=== PATIENT | female | born 1975 | race Two or more races ===

== ENCOUNTER 2018-03-27 07:28 | Inpatient (IN) | payer OTHER ==
[~2018-03-27] VITALS: Ht 175.3 cm; Wt 61.2 kg
[2018-03-27 08:05] VITALS: BP 111/79
--- NOTE | 2018-03-27 08:18 | NUR ---
ED Nurse Note: Pt from home, visiting from [place] returning Thursday03/30/18, ambulatory, A&Ox4. Pt c/o abdominal pain 5/10 and vaginal bleeding for two days after taking Tamiflu for 3 days. Pt's VS taken, blood drawn and needs met. Awaiting further instructions/orders for continuity of care.
--- NOTE | 2018-03-27 08:21 | Emergency Room Report ---
History of Present Illness General Chief Complaint: Abdominal Pain Source: Patient Present Illness HPI Patient is a 47-year-old female presented after increased lower abdominal pain. Patient had gradual onset of symptoms. She reports having increased vaginal bleeding for the past 2 days. Patient had normal menses approximately 2 weeks ago. She denies irregular menses in the past. Patient had been having increased generalized body aches as well as abdominal discomfort associated with some diarrhea. Patient had no prior history of fibroids. She reports having some prior lesion which was ill-defined. Patient denies any anticoagulant use. She reports taking Tamiflu as well as ibuprofen for the past few days. She reports of increased abdominal discomfort. She denies any hematemesis.Patient had recent travel to [facility] proximally 2 months ago and had recently been treated for amebiasis with 5 days of metronidazole. Patient also had recently traveled to [place] and had just come to the . She reports having multiple insect bites that time.Patient is from [place] and currently lives in [place].Patient reports having multiple episodes of diarrhea. She reports having had 3 miscarriages in the past and denies being . Allergies: Coded Allergies: No Known Allergies (Unverified , 03/27/18) Patient History Past Medical History: see triage record Last Menstrual Period: 03/13/2018 Now: No : 4 Para: 0 Reviewed Nursing Documentation: PMH: Agreed; PSxH: Agreed Nursing Documentation-PMH Hx Cardiac Problems: No - lymphedema Review of Systems All Other Systems: negative except mentioned in HPI Physical Exam Vital Signs Date Time Temp Pulse Resp B/P (MAP) Pulse Ox O2 Delivery O2 Flow Rate FiO2 03/27/18 07:38 98.1 92 18 100/74 97 Room Air Sp02 EP Interpretation: reviewed, normal General Appearance: normal inspection, well appearing, no apparent distress, alert, GCS 15 Head: atraumatic ENT: normal ENT inspection, hearing grossly normal, normal voice Neck: normal inspection, full range of motion, supple, no bony tend Respiratory: normal inspection, lungs clear, normal breath sounds, no respiratory distress, no retraction, no wheezing Cardiovascular #1: regular rate, rhythm, no edema Gastrointestinal: normal inspection, normal bowel sounds, non tender, soft, no guarding, no hernia Genitourinary: no CVA tenderness, other - small amount of dark vaginal bleeding , no mass palpable,no adnexal tenderness Musculoskeletal: normal inspection, back normal, normal range of motion Neurologic: normal inspection, alert, oriented x3, responsive, online user experience strategist III-XII nml as tested, motor strength/tone normal, DTRs symmetric, speech normal Psychiatric: normal inspection, judgement/insight normal, mood/affect normal Skin: normal inspection, normal color, no rash Medical Decision Making Diagnostic Impression: Primary Impression: Thrombocytopenia Additional Impressions: Leukopenia Acute febrile illness ER Course . Patient presented for abdominal pain. Differential diagnoses included ischemic bowel, appendicitis, perforated viscus, abdominal aortic aneurysm, inferior myocardial infarction, viral gastroenteritis . Because of complexity of patient's case laboratory testing and imaging studies were ordered. Pelvic ultrasound read by radiology showed minimal free fluid. There was follicle seen in both ovaries.. Patient was noted to have some evidence of leukopenia as well as thrombocytopenia on blood testing. Patient reports having recent fever for the past 5 days. Patient's symptoms are somewhat consistent with influenza however given the patient's leukopenia I think ITP may be another diagnosis. Patient additionally has some family history of rheumatoid disease and states her mom has rheumatoid arthritis. Patient reportedly had previously been treated for amebiasis approximately 2 months ago.She states that she was in [place] for the past [address] Nitin England was contacted for inpatient management. Labs Test 03/27/18 07:50 03/27/18 08:10 Urine Color Pale yellow Urine Appearance Clear Urine pH 5 (4.5-8.0) Urine Specific [place] 1.010 (1.005-1.035) Urine Protein 2+ (NEGATIVE) Urine Glucose (UA) Negative (NEGATIVE) Urine Ketones Negative (NEGATIVE) Urine Blood 5+ (NEGATIVE) Urine Nitrite Negative (NEGATIVE) Urine Bilirubin Negative (NEGATIVE) Urine Urobilinogen Normal MG/DL (0.0-1.0) Urine Leukocyte Esterase Negative (NEGATIVE) Urine RBC 2-4 /HPF (0 - 2) Urine WBC 0 /HPF (0 - 2) Urine Squamous Epithelial Cells Occasional /LPF Urine Bacteria Moderate /HPF (NONE) Urine HCG, Qualitative Negative (NEGATIVE) White Blood Count 1.5 K/UL (4.8-10.8) Red Blood Count 4.37 M/UL (4.20-5.40) Hemoglobin 13.9 G/DL (12.0-16.0) Hematocrit 40.9 % (37.0-47.0) Mean Corpuscular Volume 94 FL (80-99) Mean Corpuscular Hemoglobin 31.9 PG (27.0-31.0) Mean Corpuscular Hemoglobin Concent 34.1 G/DL (32.0-36.0) Red Cell Distribution Width 11.3 % (11.6-14.8) Platelet Count 87 K/UL (150-450) Mean Platelet Volume 6.5 FL (6.5-10.1) Neutrophils (%) (Auto) % (45.0-75.0) Lymphocytes (%) (Auto) % (20.0-45.0) Monocytes (%) (Auto) % (1.0-10.0) Eosinophils (%) (Auto) % (0.0-3.0) Basophils (%) (Auto) % (0.0-2.0) Prothrombin Time 10.0 SEC (9.30-11.50) Prothromb Time International Ratio 0.9 (0.9-1.1) Activated Partial Thromboplast Time 31 SEC (23-33) Sodium Level 136 MMOL/L (136-145) Potassium Level 4.3 MMOL/L (3.5-5.1) Chloride Level 100 MMOL/L (98-107) Carbon Dioxide Level 29 MMOL/L (21-32) Anion Gap 7 mmol/L (5-15) Blood Urea Nitrogen 6 mg/dL (7-18) Creatinine 1.0 MG/DL (0.55-1.30) Estimat Glomerular Filtration Rate 59.7 mL/min (>60) Glucose Level 103 MG/DL (74-106) Calcium Level 9.2 MG/DL (8.5-10.1) Total Bilirubin 0.3 MG/DL (0.2-1.0) Aspartate Amino Transf (AST/SGOT) 44 U/L (15-37) Alanine Aminotransferase (ALT/SGPT) 38 U/L (12-78) Alkaline Phosphatase 57 U/L (46-116) Total Protein 7.2 G/DL (6.4-8.2) Albumin 3.8 G/DL (3.4-5.0) Globulin 3.4 g/dL Albumin/Globulin Ratio 1.1 (1.0-2.7) Last Vital Signs Date Time Temp Pulse Resp B/P (MAP) Pulse Ox O2 Delivery O2 Flow Rate FiO2 03/27/18 07:38 98.1 92 18 100/74 97 Room Air Status: unchanged Disposition: ADMITTED INPATIENT Condition: Stable Referrals: NOT CHOSEN IPA/,REFERRING (PCP) Narayan Almanza MD Mar 27, 2018 08:21
[2018-03-27 08:47] LABS: HEMATOCRIT 40.9 % (37.0-47.0); HEMOGLOBIN 13.9 G/DL (12.0-16.0); MEAN CORPUSCULAR VOLUME 94 FL (80-99); PLATELET COUNT 87 K/UL (150-450); RED BLOOD COUNT 4.37 M/UL (4.20-5.40); RED CELL DISTRIBUTION WIDTH 11.3 % (11.6-14.8)
[2018-03-27 08:54] LABS: WHITE BLOOD COUNT 1.5 K/UL (4.8-10.8)
[2018-03-27 08:56] LABS: ANION GAP 7 mmol/L (5-15); BLOOD UREA NITROGEN 6 mg/dL (7-18); CALCIUM 9.2 MG/DL (8.5-10.1); CARBON DIOXIDE 29 MMOL/L (21-32); CHLORIDE 100 MMOL/L (98-107); POTASSIUM 4.3 MMOL/L (3.5-5.1); SODIUM 136 MMOL/L (136-145)
[2018-03-27 08:58] LABS: INR 0.9 (0.9-1.1)
[2018-03-27 09:01] LABS: ALANINE AMINOTRANSFERASE 38 U/L (12-78); ALBUMIN 3.8 G/DL (3.4-5.0); ALBUMIN/GLOBULIN RATIO 1.1 (1.0-2.7); ALKALINE PHOSPHATASE 57 U/L (46-116); ASPARTATE AMINO TRANSFERASE 44 U/L (15-37); BILIRUBIN,TOTAL 0.3 MG/DL (0.2-1.0)
[2018-03-27 09:03] LABS: APPEARANCE,URINE CLEAR; BILIRUBIN, URINE NEGATIVE (NEGATIVE); COLOR,URINE PALE YELLOW; GLUCOSE, URINE (UA) NEGATIVE (NEGATIVE); KETONES,URINE NEGATIVE (NEGATIVE); LEUKOCYTE ESTERASE ,URINE NEGATIVE (NEGATIVE); NITRITE,URINE NEGATIVE (NEGATIVE); PH,URINE 5 (4.5-8.0); PROTEIN,URINE 2+ (NEGATIVE); UROBILINOGEN,URINE NORMAL MG/DL (0.0-1.0)
--- NOTE | 2018-03-27 09:10 | NUR ---
ED Nurse Note: Pt. went down to US
--- NOTE | 2018-03-27 09:30 | NUR ---
ED Nurse Note: Pt came back form [facility]
--- NOTE | 2018-03-27 10:19 | Diagnostic Imaging Report ---
INDICATION: Pain TECHNIQUE: Real-time sonographic evaluation of the pelvis is performed in transverse and longitudinal projections. Both trans-abdominal and endovaginal techniques are utilized. COMPARISON: None FINDINGS: A negative test is reported. The uterus is normal in size, it measures 8.2 x 5.2 x 4 centimeters. The endometrium is normal in thickness measuring 5.8 mm. The right ovary measures 3.5 x 3.6 x 1.7 cm and the left ovary measure 3. 7 x 3.4 x 2 cm. Follicles are seen in bilateral ovaries measuring 1.8 cm maximally on the left. Small amount of free fluid. IMPRESSION: Small amount of free pelvic fluid with bilateral ovarian follicles, measuring 1.8 cm maximally on the left. Otherwise normal pelvic ultrasound.
--- NOTE | 2018-03-27 11:00 | NUR ---
ED Nurse Note: Pelvic exam done by MD with 1 female RN assistance. Pt complaint with procedure well. Denied pain or discomfort. at bedside.
[2018-03-27] MEDS ORDERED: TBO-Filgrastim 300 mcg/0.5ml SQ SCH (11:39)
[2018-03-27] MEDS ORDERED: LORazepam 1mg tab ORAL PRN (11:45)
[2018-03-27] MEDS ORDERED: Nitroglycerin Subl 0.4mg tab SL PRN (11:45)
[2018-03-27] MEDS ORDERED: Mylanta II UD 30ml ORAL PRN (11:45)
[2018-03-27] MEDS ORDERED: HYDROmorphone 1mg/NS 50ml IVPB 50 ML IVPB PRN (11:45)
[2018-03-27] MEDS ORDERED: Zolpidem 5mg tab ORAL PRN (11:45)
[2018-03-27 12:10] VITALS: BP 94/60
--- NOTE | 2018-03-27 12:46 | Consultation ---
History of Present Illness General Date patient seen: Mar 27, 2018 Chief Complaint: Abdominal Pain Present Illness HPI 42 y/o F with hx of miscarriage x3 presents to ED on 03/27 with lower abd pain and vaginal bleeding for 2 days and 5 days of fever. Per patient, she had normal menses ~ 2 weeks ago. Also endorses generalized body aches, diarrhea. Patient returned from [place] 1 week ago after being there for 1 month for vacaction. Over there she got multiple mosquito bites; [place]. [place] SHe started having feverse 3 days after returnign from [facility]; fever up to 100-101, persistent. Also frontal headaches, nausea Denies hematemesis, melena, vomiting, cough, sore throat, rash AMS. Of note,jimi fuentes had a recent travel to [facility] for 1 month Nov-Dec 2017 and had recently been treated for amebiasis with 5 days of Flagyl and diarrhea resolved. 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 Patient is from [place] and currently lives in [place]. Allergies: Coded Allergies: No Known Allergies (Unverified , 03/27/18) Patient History Healthcare decision maker N Resuscitation status Advanced Directive on File Physical Exam Physical Exam Narrative General Appearance: normal inspection, well appearing, no apparent distress, alert, HEENT: atraumatic, normal ENT inspection Neck: normal inspection, full range of motion, supple, no bony tend Respiratory: normal inspection, lungs clear, normal breath sounds, no respiratory distress, no retraction, no wheezing Cardiovascular : regular rate, rhythm, no edema Gastrointestinal: normal inspection, normal bowel sounds, non tender, soft, no guarding, no hernia Genitourinary: no CVA tenderness Musculoskeletal: normal inspection, back normal, normal range of motion Skin: normal inspection, normal color, no rash, capillary refil <2s Last 24 Hour Vital Signs Date Time Temp Pulse Resp B/P (MAP) Pulse Ox O2 Delivery O2 Flow Rate FiO2 03/27/18 12:10 100.8 79 17 94/60 98 Room Air 03/27/18 08:30 75 14 Room Air 03/27/18 08:05 98.7 75 14 111/79 100 Room Air 03/27/18 07:38 98.1 92 18 100/74 97 Room Air Laboratory Tests Test 03/27/18 07:50 03/27/18 08:10 Urine Color Pale yellow Urine Appearance Clear Urine pH 5 (4.5-8.0) Urine Specific [place] 1.010 (1.005-1.035) Urine Protein 2+ (NEGATIVE) H Urine Glucose (UA) Negative (NEGATIVE) Urine Ketones Negative (NEGATIVE) Urine Blood 5+ (NEGATIVE) H Urine Nitrite Negative (NEGATIVE) Urine Bilirubin Negative (NEGATIVE) Urine Urobilinogen Normal MG/DL (0.0-1.0) Urine Leukocyte Esterase Negative (NEGATIVE) Urine RBC 2-4 /HPF (0 - 2) H Urine WBC 0 /HPF (0 - 2) Urine Squamous Epithelial Cells Occasional /LPF Urine Bacteria Moderate /HPF (NONE) H Urine HCG, Qualitative Negative (NEGATIVE) White Blood Count 1.5 K/UL (4.8-10.8) *L Red Blood Count 4.37 M/UL (4.20-5.40) Hemoglobin 13.9 G/DL (12.0-16.0) Hematocrit 40.9 % (37.0-47.0) Mean Corpuscular Volume 94 FL (80-99) Mean Corpuscular Hemoglobin 31.9 PG (27.0-31.0) H Mean Corpuscular Hemoglobin Concent 34.1 G/DL (32.0-36.0) Red Cell Distribution Width 11.3 % (11.6-14.8) L Platelet Count 87 K/UL (150-450) L Mean Platelet Volume 6.5 FL (6.5-10.1) Neutrophils (%) (Auto) % (45.0-75.0) Lymphocytes (%) (Auto) % (20.0-45.0) Monocytes (%) (Auto) % (1.0-10.0) Eosinophils (%) (Auto) % (0.0-3.0) Basophils (%) (Auto) % (0.0-2.0) Differential Total Cells Counted 100 Neutrophils % (Manual) 47 % (45-75) Lymphocytes % (Manual) 39 % (20-45) Monocytes % (Manual) 0 % (1-10) L Eosinophils % (Manual) 0 % (0-3) Basophils % (Manual) 1 % (0-2) Band Neutrophils 13 % (0-8) H Platelet Estimate Decreased L Platelet Morphology Normal Red Blood Cell Morphology Normal Prothrombin Time 10.0 SEC (9.30-11.50) Prothromb Time International Ratio 0.9 (0.9-1.1) Activated Partial Thromboplast Time 31 SEC (23-33) Sodium Level 136 MMOL/L (136-145) Potassium Level 4.3 MMOL/L (3.5-5.1) Chloride Level 100 MMOL/L (98-107) Carbon Dioxide Level 29 MMOL/L (21-32) Anion Gap 7 mmol/L (5-15) Blood Urea Nitrogen 6 mg/dL (7-18) L Creatinine 1.0 MG/DL (0.55-1.30) Estimat Glomerular Filtration Rate 59.7 mL/min (>60) Glucose Level 103 MG/DL (74-106) Calcium Level 9.2 MG/DL (8.5-10.1) Total Bilirubin 0.3 MG/DL (0.2-1.0) Aspartate Amino Transf (AST/SGOT) 44 U/L (15-37) H Alanine Aminotransferase (ALT/SGPT) 38 U/L (12-78) Alkaline Phosphatase 57 U/L (46-116) Total Protein 7.2 G/DL (6.4-8.2) Albumin 3.8 G/DL (3.4-5.0) Globulin 3.4 g/dL Albumin/Globulin Ratio 1.1 (1.0-2.7) Microbiology Date/Time Source Procedure Growth Status 03/27/18 00:00 Nasal Nares Influenza Types A,B Antigen (COLLEEN) - Final Complete Height (Feet): 5 Height (Inches): 9.00 Weight (Pounds): 135 Medications Current Medications Medications (Trade) Dose Ordered Sig/Ronda Route PRN Reason Start Time Stop Time Status Last Admin Dose Admin Acetaminophen (Tylenol) 650 mg Q4H PRN ORAL fever 03/27/18 11:45 04/26/18 11:44 Al Hydroxide/Mg Hydroxide (Mylanta II) 30 ml Q6H PRN ORAL dyspepsia 03/27/18 11:45 04/26/18 11:44 Bisacodyl (Dulcolax) 10 mg HSPRN PRN RECTAL Constipation 03/27/18 11:45 04/26/18 11:44 Dextrose (Dextrose 50%) 25 ml Q30M PRN IV Hypoglycemia 03/27/18 11:45 04/26/18 11:44 Dextrose (Dextrose 50%) 50 ml Q30M PRN IV Hypoglycemia 03/27/18 11:45 04/26/18 11:44 Diphenhydramine HCl (Benadryl) 25 mg Q6H PRN ORAL Itching/Pruritis 03/27/18 11:45 04/26/18 11:44 Famotidine (Pepcid) 40 mg DAILY ORAL 03/28/18 09:00 04/27/18 08:59 Hydromorphone HCl 50 ml @ 200 mls/hr EVERY 6 HOURS PRN IVPB Moderate Pain (Pain Scale 4-6) 03/27/18 11:45 04/26/18 11:44 UNV Lorazepam (Ativan) 1 mg Q4H PRN ORAL For Anxiety 03/27/18 11:45 04/03/18 11:44 Nitroglycerin (Ntg) 0.4 mg Q5M X 3 DOSES PRN SL Prn Chest Pain 03/27/18 11:45 04/26/18 11:44 Ondansetron HCl (Zofran) 4 mg Q6H PRN IVP Nausea & Vomiting 03/27/18 11:45 04/26/18 11:44 Sodium 1,000 ml @ 75 mls/hr [id number] IV 03/27/18 12:38 04/26/18 12:37 UNV Tbo-Filgrastim (Granix) 300 mcg ONCE SQ 03/27/18 11:39 03/27/18 15:00 Zolpidem Tartrate (Ambien) 5 mg HSPRN PRN ORAL Insomnia 03/27/18 11:45 04/03/18 11:44 Assessment/Plan Assessment/Plan Abx: None Assessment: Viral syndrome- high suspicion for Dengue fever given recent travel to [place], multiple mosquitoes bites, leukopenia/thrombocytopenia, bleeding, fever- watch out for Dengue hemorrhagic fever and/or shock Vaginal Bleeding -Pelvic/transvaginal US: Small amount of free pelvic fluid with bilateral ovarian follicles, measuring 1.8 cm maximally on the left. Otherwise normal pelvic ultrasound. 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 Will continue to follow along with you. Discussed with Shiela Costa M.D. Mar 27, 2018 12:46
--- NOTE | 2018-03-27 12:50 | NUR ---
ED Nurse Note: Report given to ANNA Jenkins in Med surge including admitting MD walter, the most recent VS and lab resulrt. Addendum: 03/27/18 at 1251 by [email or web address] ED Nurse Note: Report given to ANNA Jenkins in Med surge including admitting MD walter, the most recent VS and lab results. Pt had mild fever earlier and 2 tabs Tylenol 325mg were given and last Temp was 99.7. Pt left department by floor technician in stable condition. at bedside and he signed on belonging list and he will take everything home besides clothing and nose ring which is attached to pt.
--- NOTE | 2018-03-27 13:33 | Diagnostic Imaging Report ---
INDICATION: Infected COMPARISON: None FINDINGS: Single frontal view demonstrates a normal cardiomediastinal silhouette. Opacity in the right lower lung zone with small pleural effusion, correlation can be obtained with CT. The visualized osseous structures are within normal limits. IMPRESSION: Opacity in the right lower lung zone with small pleural effusion, correlation can be obtained with CT.
[2018-03-27] MEDS: 1/2NS w/KCl 20mEq 1000ml 1,000 ML IV SCH (13:52)
[2018-03-27 16:00] VITALS: BP 135/82
[2018-03-27] MEDS ORDERED: HYDROmorphone 1mg/ml Carpuject IVP PRN (16:15)
[2018-03-27 20:00] VITALS: BP 88/49
--- NOTE | 2018-03-27 20:31 | NUR ---
HAND-OFF: Report given to ANNA Jarvis, pt is stable condition.
--- NOTE | 2018-03-27 20:32 | NUR ---
NURSE NOTES: patient received. patient in no acute distress at this time. patient complains of no pain at this time. patient awake alert and oriented x4. patient IV patent and asymptomatic. bed in lowest position and locked. call light within reach. will continue to monitor.
[2018-03-28 04:00] VITALS: BP 93/54
[2018-03-28] MEDS: 1/2NS w/KCl 20mEq 1000ml 1,000 ML IV SCH ×2 (04:05→15:48)
--- NOTE | 2018-03-28 07:15 | NUR ---
NURSE NOTES: Report received from ANNA Jarvis. Pt in bed, asleep, respiration regular, bed in lowest position, call light within reach.
[2018-03-28 07:32] LABS: HEMATOCRIT 36.3 % (37.0-47.0); HEMOGLOBIN 12.7 G/DL (12.0-16.0); MEAN CORPUSCULAR VOLUME 92 FL (80-99); PLATELET COUNT 70 K/UL (150-450); RED BLOOD COUNT 3.95 M/UL (4.20-5.40); RED CELL DISTRIBUTION WIDTH 11.4 % (11.6-14.8); WHITE BLOOD COUNT 8.9 K/UL (4.8-10.8)
--- NOTE | 2018-03-28 07:39 | NUR ---
HAND-OFF: Report given to ANNA hinds.
[2018-03-28 08:00] VITALS: BP 109/66
[2018-03-28 08:03] LABS: ALANINE AMINOTRANSFERASE 60 U/L (12-78); ALBUMIN 3.4 G/DL (3.4-5.0); ALKALINE PHOSPHATASE 52 U/L (46-116); ASPARTATE AMINO TRANSFERASE 67 U/L (15-37); BILIRUBIN,DIRECT 0.1 MG/DL (0.0-0.3); BILIRUBIN,TOTAL 0.3 MG/DL (0.2-1.0)
[2018-03-28 08:11] LABS: ANION GAP 7 mmol/L (5-15); BLOOD UREA NITROGEN 9 mg/dL (7-18); CALCIUM 8.6 MG/DL (8.5-10.1); CARBON DIOXIDE 26 MMOL/L (21-32); CHLORIDE 104 MMOL/L (98-107); CREATININE 0.9 MG/DL (0.55-1.30); POTASSIUM 4.2 MMOL/L (3.5-5.1); SODIUM 137 MMOL/L (136-145)
[2018-03-28 12:00] VITALS: BP 98/61
--- NOTE | 2018-03-28 15:33 | NUR ---
NURSE NOTES: pt asking for flu shot, notified Dr. England so we can order
--- NOTE | 2018-03-28 15:33 | Consultation ---
History of Present Illness General Date patient seen: Mar 28, 2018 Chief Complaint: Abdominal Pain Present Illness Allergies: Coded Allergies: No Known Allergies (Unverified , 03/27/18) Patient History Healthcare decision maker N Resuscitation status Full Code Advanced Directive on File Physical Exam Last 24 Hour Vital Signs Date Time Temp Pulse Resp B/P (MAP) Pulse Ox O2 Delivery O2 Flow Rate FiO2 03/28/18 12:00 98.3 70 19 98/61 (73) 99 03/28/18 09:00 Room Air 03/28/18 08:00 98.8 68 19 109/66 (80) 98 03/28/18 06:09 99.5 03/28/18 04:00 100.4 79 18 93/54 (67) 96 03/27/18 21:00 Room Air 03/27/18 20:00 100.9 75 17 88/49 (62) 03/27/18 16:00 100.1 70 135/82 (99) Intake and Output 03/27/18 03/28/18 19:00 07:00 Intake Total 1120 ml 120 ml Balance 1120 ml 120 ml Intake Oral 120 ml 120 ml IV Total 1000 ml # Voids 2 1 Laboratory Tests Test 03/27/18 18:30 03/28/18 06:00 Dengue Fever IgG Antibody Pending Dengue Fever IgM Antibody Pending White Blood Count 8.9 K/UL (4.8-10.8) # Red Blood Count 3.95 M/UL (4.20-5.40) L Hemoglobin 12.7 G/DL (12.0-16.0) Hematocrit 36.3 % (37.0-47.0) L Mean Corpuscular Volume 92 FL (80-99) Mean Corpuscular Hemoglobin 32.2 PG (27.0-31.0) H Mean Corpuscular Hemoglobin Concent 35.1 G/DL (32.0-36.0) Red Cell Distribution Width 11.4 % (11.6-14.8) L Platelet Count 70 K/UL (150-450) L Mean Platelet Volume 9.6 FL (6.5-10.1) Neutrophils (%) (Auto) % (45.0-75.0) Lymphocytes (%) (Auto) % (20.0-45.0) Monocytes (%) (Auto) % (1.0-10.0) Eosinophils (%) (Auto) % (0.0-3.0) Basophils (%) (Auto) % (0.0-2.0) Differential Total Cells Counted 100 Neutrophils % (Manual) 68 % (45-75) Lymphocytes % (Manual) 15 % (20-45) L Monocytes % (Manual) 8 % (1-10) Eosinophils % (Manual) 0 % (0-3) Basophils % (Manual) 0 % (0-2) Band Neutrophils 9 % (0-8) H Platelet Estimate Decreased L Platelet Morphology Normal Prothrombin Time 10.2 SEC (9.30-11.50) Prothromb Time International Ratio 1.0 (0.9-1.1) Activated Partial Thromboplast Time 30 SEC (23-33) Sodium Level 137 MMOL/L (136-145) Potassium Level 4.2 MMOL/L (3.5-5.1) Chloride Level 104 MMOL/L (98-107) Carbon Dioxide Level 26 MMOL/L (21-32) Anion Gap 7 mmol/L (5-15) Blood Urea Nitrogen 9 mg/dL (7-18) Creatinine 0.9 MG/DL (0.55-1.30) Estimat Glomerular Filtration Rate > 60 mL/min (>60) Glucose Level 92 MG/DL (74-106) Calcium Level 8.6 MG/DL (8.5-10.1) Total Bilirubin 0.3 MG/DL (0.2-1.0) Direct Bilirubin 0.1 MG/DL (0.0-0.3) Aspartate Amino Transf (AST/SGOT) 67 U/L (15-37) H Alanine Aminotransferase (ALT/SGPT) 60 U/L (12-78) Alkaline Phosphatase 52 U/L (46-116) Total Protein 5.9 G/DL (6.4-8.2) L Albumin 3.4 G/DL (3.4-5.0) HIV-1 RNA (PCR) log10 Value Pending HIV-1 RNA Ultraquantitative (PCR) Pending Height (Feet): 5 Height (Inches): 9.00 Weight (Pounds): 135 Medications Current Medications Medications (Trade) Dose Ordered Sig/Ronda Route PRN Reason Start Time Stop Time Status Last Admin Dose Admin Acetaminophen (Tylenol) 650 mg Q4H PRN ORAL fever 03/27/18 11:45 04/26/18 11:44 03/28/18 05:39 Al Hydroxide/Mg Hydroxide (Mylanta II) 30 ml Q6H PRN ORAL dyspepsia 03/27/18 11:45 04/26/18 11:44 Bisacodyl (Dulcolax) 10 mg HSPRN PRN RECTAL Constipation 03/27/18 11:45 04/26/18 11:44 Dextrose (Dextrose 50%) 25 ml Q30M PRN IV Hypoglycemia 03/27/18 11:45 04/26/18 11:44 Dextrose (Dextrose 50%) 50 ml Q30M PRN IV Hypoglycemia 03/27/18 11:45 04/26/18 11:44 Diphenhydramine HCl (Benadryl) 25 mg Q6H PRN ORAL Itching/Pruritis 03/27/18 11:45 04/26/18 11:44 Famotidine (Pepcid) 40 mg DAILY ORAL 03/28/18 09:00 04/27/18 08:59 03/28/18 09:04 Hydromorphone HCl (Dilaudid) 1 mg Q6H PRN IVP For Pain 03/27/18 16:15 04/03/18 16:14 Lorazepam (Ativan) 1 mg Q4H PRN ORAL For Anxiety 03/27/18 11:45 04/03/18 11:44 Nitroglycerin (Ntg) 0.4 mg Q5M X 3 DOSES PRN SL Prn Chest Pain 03/27/18 11:45 04/26/18 11:44 Ondansetron HCl (Zofran) 4 mg Q6H PRN IVP Nausea & Vomiting 03/27/18 11:45 04/26/18 11:44 Sodium 1,000 ml @ 75 mls/hr [id number] IV 03/27/18 13:00 04/26/18 12:59 03/28/18 04:05 Zolpidem Tartrate (Ambien) 5 mg HSPRN PRN ORAL Insomnia 03/27/18 11:45 04/03/18 11:44 Assessment/Plan Status Narrative Heme/Oncology Consultation RFC: Low plts and anemia Date patient seen: Mar 28, 2018 Chief Complaint: Abdominal Pain REQ MD: Igor England HPI 42 y/o F with hx of miscarriage x3 presents to ED on 03/27 with lower abd pain and vaginal bleeding for 2 days and 5 days of fever. Per patient, she had normal menses ~ 2 weeks ago. Also endorses generalized body aches, diarrhea. Patient returned from [place] 1 week ago after being there for 1 month for vacaction. Over there she got multiple mosquito bites; [place]. [place] SHe started having feverse 3 days after returnign from [facility]; fever up to 100-101, persistent. Also frontal headaches, nausea. Denies hematemesis, melena, vomiting, cough, sore throat, rash AMS. Of note, patient had a recent travel to [facility] for 1 month Nov-Dec 2017 and had recently been treated for amebiasis with 5 days of Flagyl and diarrhea resolved. 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 Patient is from [place] and currently lives in [place]. Plts lower today as has anemia as well and heme consulted. Coded Allergies: No Known Allergies (Unverified , 03/27/18) Healthcare decision maker N Resuscitation status Advanced Directive on File ROS 12 point ros is otherwise neg Physical Exam Physical Exam Narrative General Appearance: normal inspection, well appearing HEENT: atraumatic, normal ENT inspection Neck: normal inspection, full range of motion, supple Respiratory: normal inspection, lungs clear Cardiovascular : regular rate, rhythm, no edema Gastrointestinal: normal inspection, normal bowel sounds, non tender Genitourinary: no CVA tenderness Musculoskeletal: normal inspection, back normal Skin: normal inspection, normal color, no rash Laboratory Tests Test 03/27/18 18:30 03/28/18 06:00 Dengue Fever IgG Antibody Pending Dengue Fever IgM Antibody Pending White Blood Count 8.9 K/UL (4.8-10.8) # Red Blood Count 3.95 M/UL (4.20-5.40) L Hemoglobin 12.7 G/DL (12.0-16.0) Hematocrit 36.3 % (37.0-47.0) L Mean Corpuscular Volume 92 FL (80-99) Mean Corpuscular Hemoglobin 32.2 PG (27.0-31.0) H Mean Corpuscular Hemoglobin Concent 35.1 G/DL (32.0-36.0) Red Cell Distribution Width 11.4 % (11.6-14.8) L Platelet Count 70 K/UL (150-450) L Mean Platelet Volume 9.6 FL (6.5-10.1) Neutrophils (%) (Auto) % (45.0-75.0) Lymphocytes (%) (Auto) % (20.0-45.0) Monocytes (%) (Auto) % (1.0-10.0) Eosinophils (%) (Auto) % (0.0-3.0) Basophils (%) (Auto) % (0.0-2.0) Differential Total Cells Counted 100 Neutrophils % (Manual) 68 % (45-75) Lymphocytes % (Manual) 15 % (20-45) L Monocytes % (Manual) 8 % (1-10) Eosinophils % (Manual) 0 % (0-3) Basophils % (Manual) 0 % (0-2) Band Neutrophils 9 % (0-8) H Platelet Estimate Decreased L Platelet Morphology Normal Prothrombin Time 10.2 SEC (9.30-11.50) Prothromb Time International Ratio 1.0 (0.9-1.1) Activated Partial Thromboplast Time 30 SEC (23-33) Sodium Level 137 MMOL/L (136-145) Potassium Level 4.2 MMOL/L (3.5-5.1) Chloride Level 104 MMOL/L (98-107) Carbon Dioxide Level 26 MMOL/L (21-32) Anion Gap 7 mmol/L (5-15) Blood Urea Nitrogen 9 mg/dL (7-18) Creatinine 0.9 MG/DL (0.55-1.30) Estimat Glomerular Filtration Rate > 60 mL/min (>60) Glucose Level 92 MG/DL (74-106) Calcium Level 8.6 MG/DL (8.5-10.1) Total Bilirubin 0.3 MG/DL (0.2-1.0) Direct Bilirubin 0.1 MG/DL (0.0-0.3) Aspartate Amino Transf (AST/SGOT) 67 U/L (15-37) H Alanine Aminotransferase (ALT/SGPT) 60 U/L (12-78) Alkaline Phosphatase 52 U/L (46-116) Total Protein 5.9 G/DL (6.4-8.2) L Albumin 3.4 G/DL (3.4-5.0) HIV-1 RNA (PCR) log10 Value Pending HIV-1 RNA Ultraquantitative (PCR) Pending Laboratory Tests Test 03/27/18 07:50 03/27/18 08:10 Urine Color Pale yellow Urine Appearance Clear Urine pH 5 (4.5-8.0) Urine Specific [place] 1.010 (1.005-1.035) Urine Protein 2+ (NEGATIVE) H Urine Glucose (UA) Negative (NEGATIVE) Urine Ketones Negative (NEGATIVE) Urine Blood 5+ (NEGATIVE) H Urine Nitrite Negative (NEGATIVE) Urine Bilirubin Negative (NEGATIVE) Urine Urobilinogen Normal MG/DL (0.0-1.0) Urine Leukocyte Esterase Negative (NEGATIVE) Urine RBC 2-4 /HPF (0 - 2) H Urine WBC 0 /HPF (0 - 2) Urine Squamous Epithelial Cells Occasional /LPF Urine Bacteria Moderate /HPF (NONE) H Urine HCG, Qualitative Negative (NEGATIVE) White Blood Count 1.5 K/UL (4.8-10.8) *L Red Blood Count 4.37 M/UL (4.20-5.40) Hemoglobin 13.9 G/DL (12.0-16.0) Hematocrit 40.9 % (37.0-47.0) Mean Corpuscular Volume 94 FL (80-99) Mean Corpuscular Hemoglobin 31.9 PG (27.0-31.0) H Mean Corpuscular Hemoglobin Concent 34.1 G/DL (32.0-36.0) Red Cell Distribution Width 11.3 % (11.6-14.8) L Platelet Count 87 K/UL (150-450) L Mean Platelet Volume 6.5 FL (6.5-10.1) Neutrophils (%) (Auto) % (45.0-75.0) Lymphocytes (%) (Auto) % (20.0-45.0) Monocytes (%) (Auto) % (1.0-10.0) Eosinophils (%) (Auto) % (0.0-3.0) Basophils (%) (Auto) % (0.0-2.0) Differential Total Cells Counted 100 Neutrophils % (Manual) 47 % (45-75) Lymphocytes % (Manual) 39 % (20-45) Monocytes % (Manual) 0 % (1-10) L Eosinophils % (Manual) 0 % (0-3) Basophils % (Manual) 1 % (0-2) Band Neutrophils 13 % (0-8) H Platelet Estimate Decreased L Platelet Morphology Normal Red Blood Cell Morphology Normal Prothrombin Time 10.0 SEC (9.30-11.50) Prothromb Time International Ratio 0.9 (0.9-1.1) Activated Partial Thromboplast Time 31 SEC (23-33) Sodium Level 136 MMOL/L (136-145) Potassium Level 4.3 MMOL/L (3.5-5.1) Chloride Level 100 MMOL/L (98-107) Carbon Dioxide Level 29 MMOL/L (21-32) Anion Gap 7 mmol/L (5-15) Blood Urea Nitrogen 6 mg/dL (7-18) L Creatinine 1.0 MG/DL (0.55-1.30) Estimat Glomerular Filtration Rate 59.7 mL/min (>60) Glucose Level 103 MG/DL (74-106) Calcium Level 9.2 MG/DL (8.5-10.1) Total Bilirubin 0.3 MG/DL (0.2-1.0) Aspartate Amino Transf (AST/SGOT) 44 U/L (15-37) H Alanine Aminotransferase (ALT/SGPT) 38 U/L (12-78) Alkaline Phosphatase 57 U/L (46-116) Total Protein 7.2 G/DL (6.4-8.2) Albumin 3.8 G/DL (3.4-5.0) Globulin 3.4 g/dL Albumin/Globulin Ratio 1.1 (1.0-2.7) Microbiology Date/Time Source Procedure Growth Status 03/27/18 00:00 Nasal Nares Influenza Types A,B Antigen (COLLEEN) - Final Complete Height (Feet): 5 Height (Inches): 9.00 Weight (Pounds): 135 Medications Current Medications Medications (Trade) Dose Ordered Sig/Ronda Route PRN Reason Start Time Stop Time Status Last Admin Dose Admin Acetaminophen (Tylenol) 650 mg Q4H PRN ORAL fever 03/27/18 11:45 04/26/18 11:44 Al Hydroxide/Mg Hydroxide (Mylanta II) 30 ml Q6H PRN ORAL dyspepsia 03/27/18 11:45 04/26/18 11:44 Bisacodyl (Dulcolax) 10 mg HSPRN PRN RECTAL Constipation 03/27/18 11:45 04/26/18 11:44 Dextrose (Dextrose 50%) 25 ml Q30M PRN IV Hypoglycemia 03/27/18 11:45 04/26/18 11:44 Dextrose (Dextrose 50%) 50 ml Q30M PRN IV Hypoglycemia 03/27/18 11:45 04/26/18 11:44 Diphenhydramine HCl (Benadryl) 25 mg Q6H PRN ORAL Itching/Pruritis 03/27/18 11:45 04/26/18 11:44 Famotidine (Pepcid) 40 mg DAILY ORAL 03/28/18 09:00 04/27/18 08:59 Hydromorphone HCl 50 ml @ 200 mls/hr EVERY 6 HOURS PRN IVPB Moderate Pain (Pain Scale 4-6) 03/27/18 11:45 04/26/18 11:44 UNV Lorazepam (Ativan) 1 mg Q4H PRN ORAL For Anxiety 03/27/18 11:45 04/03/18 11:44 Nitroglycerin (Ntg) 0.4 mg Q5M X 3 DOSES PRN SL Prn Chest Pain 03/27/18 11:45 04/26/18 11:44 Ondansetron HCl (Zofran) 4 mg Q6H PRN IVP Nausea & Vomiting 03/27/18 11:45 04/26/18 11:44 Sodium 1,000 ml @ 75 mls/hr [id number] IV 03/27/18 12:38 04/26/18 12:37 UNV Tbo-Filgrastim (Granix) 300 mcg ONCE SQ 03/27/18 11:39 03/27/18 15:00 Zolpidem Tartrate (Ambien) 5 mg HSPRN PRN ORAL Insomnia 03/27/18 11:45 04/03/18 11:44 Assessment/Plan # Leukopenia/Thrombocytopenia -- 1st time admitted, currently baseline 50-100k, hepatitis and hiv are negative. Potentially due to viral syndrome- high suspicion for Dengue fever given recent travel to [place], multiple mosquitoes bites, leukopenia/thrombocytopenia, bleeding, fever- watch out for Dengue hemorrhagic fever and/or shock --> us of the abdomen has been ruled out --> viral studies thus far are negative, get parvo as well --> peripheral smear has been reviewed and is negative --> neupogen x 1 dose given 03/27/18 --> bone marrow biopsy is option if no other cause found # Vaginal Bleeding --> Pelvic/transvaginal US: Small amount of free pelvic fluid with bilateral ovarian follicles, measuring 1.8 cm maximally on the left. Otherwise normal pelvic ultrasound. 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 John Doyle MD Mar 28, 2018 15:33
--- NOTE | 2018-03-28 15:49 | Consultation ---
History of Present Illness General Chief Complaint: Abdominal Pain Present Illness Allergies: Coded Allergies: No Known Allergies (Unverified , 03/27/18) Patient History Healthcare decision maker N Resuscitation status Full Code Advanced Directive on File Physical Exam Last 24 Hour Vital Signs Date Time Temp Pulse Resp B/P (MAP) Pulse Ox O2 Delivery O2 Flow Rate FiO2 03/28/18 12:00 98.3 70 19 98/61 (73) 99 03/28/18 09:00 Room Air 03/28/18 08:00 98.8 68 19 109/66 (80) 98 03/28/18 06:09 99.5 03/28/18 04:00 100.4 79 18 93/54 (67) 96 03/27/18 21:00 Room Air 03/27/18 20:00 100.9 75 17 88/49 (62) 03/27/18 16:00 100.1 70 135/82 (99) Intake and Output 03/27/18 03/28/18 19:00 07:00 Intake Total 1120 ml 120 ml Balance 1120 ml 120 ml Intake Oral 120 ml 120 ml IV Total 1000 ml # Voids 2 1 Laboratory Tests Test 03/27/18 18:30 03/28/18 06:00 Dengue Fever IgG Antibody Pending Dengue Fever IgM Antibody Pending White Blood Count 8.9 K/UL (4.8-10.8) # Red Blood Count 3.95 M/UL (4.20-5.40) L Hemoglobin 12.7 G/DL (12.0-16.0) Hematocrit 36.3 % (37.0-47.0) L Mean Corpuscular Volume 92 FL (80-99) Mean Corpuscular Hemoglobin 32.2 PG (27.0-31.0) H Mean Corpuscular Hemoglobin Concent 35.1 G/DL (32.0-36.0) Red Cell Distribution Width 11.4 % (11.6-14.8) L Platelet Count 70 K/UL (150-450) L Mean Platelet Volume 9.6 FL (6.5-10.1) Neutrophils (%) (Auto) % (45.0-75.0) Lymphocytes (%) (Auto) % (20.0-45.0) Monocytes (%) (Auto) % (1.0-10.0) Eosinophils (%) (Auto) % (0.0-3.0) Basophils (%) (Auto) % (0.0-2.0) Differential Total Cells Counted 100 Neutrophils % (Manual) 68 % (45-75) Lymphocytes % (Manual) 15 % (20-45) L Monocytes % (Manual) 8 % (1-10) Eosinophils % (Manual) 0 % (0-3) Basophils % (Manual) 0 % (0-2) Band Neutrophils 9 % (0-8) H Platelet Estimate Decreased L Platelet Morphology Normal Prothrombin Time 10.2 SEC (9.30-11.50) Prothromb Time International Ratio 1.0 (0.9-1.1) Activated Partial Thromboplast Time 30 SEC (23-33) Sodium Level 137 MMOL/L (136-145) Potassium Level 4.2 MMOL/L (3.5-5.1) Chloride Level 104 MMOL/L (98-107) Carbon Dioxide Level 26 MMOL/L (21-32) Anion Gap 7 mmol/L (5-15) Blood Urea Nitrogen 9 mg/dL (7-18) Creatinine 0.9 MG/DL (0.55-1.30) Estimat Glomerular Filtration Rate > 60 mL/min (>60) Glucose Level 92 MG/DL (74-106) Calcium Level 8.6 MG/DL (8.5-10.1) Total Bilirubin 0.3 MG/DL (0.2-1.0) Direct Bilirubin 0.1 MG/DL (0.0-0.3) Aspartate Amino Transf (AST/SGOT) 67 U/L (15-37) H Alanine Aminotransferase (ALT/SGPT) 60 U/L (12-78) Alkaline Phosphatase 52 U/L (46-116) Total Protein 5.9 G/DL (6.4-8.2) L Albumin 3.4 G/DL (3.4-5.0) HIV-1 RNA (PCR) log10 Value Pending HIV-1 RNA Ultraquantitative (PCR) Pending Height (Feet): 5 Height (Inches): 9.00 Weight (Pounds): 135 Medications Current Medications Medications (Trade) Dose Ordered Sig/Ronda Route PRN Reason Start Time Stop Time Status Last Admin Dose Admin Acetaminophen (Tylenol) 650 mg Q4H PRN ORAL fever 03/27/18 11:45 04/26/18 11:44 03/28/18 05:39 Al Hydroxide/Mg Hydroxide (Mylanta II) 30 ml Q6H PRN ORAL dyspepsia 03/27/18 11:45 04/26/18 11:44 Bisacodyl (Dulcolax) 10 mg HSPRN PRN RECTAL Constipation 03/27/18 11:45 04/26/18 11:44 Dextrose (Dextrose 50%) 25 ml Q30M PRN IV Hypoglycemia 03/27/18 11:45 04/26/18 11:44 Dextrose (Dextrose 50%) 50 ml Q30M PRN IV Hypoglycemia 03/27/18 11:45 04/26/18 11:44 Diphenhydramine HCl (Benadryl) 25 mg Q6H PRN ORAL Itching/Pruritis 03/27/18 11:45 04/26/18 11:44 Famotidine (Pepcid) 40 mg DAILY ORAL 03/28/18 09:00 04/27/18 08:59 03/28/18 09:04 Hydromorphone HCl (Dilaudid) 1 mg Q6H PRN IVP For Pain 03/27/18 16:15 04/03/18 16:14 Lorazepam (Ativan) 1 mg Q4H PRN ORAL For Anxiety 03/27/18 11:45 04/03/18 11:44 Nitroglycerin (Ntg) 0.4 mg Q5M X 3 DOSES PRN SL Prn Chest Pain 03/27/18 11:45 04/26/18 11:44 Ondansetron HCl (Zofran) 4 mg Q6H PRN IVP Nausea & Vomiting 03/27/18 11:45 04/26/18 11:44 Sodium 1,000 ml @ 75 mls/hr [id number] IV 03/27/18 13:00 04/26/18 12:59 03/28/18 04:05 Zolpidem Tartrate (Ambien) 5 mg HSPRN PRN ORAL Insomnia 03/27/18 11:45 04/03/18 11:44 Orlando Tucker MD Mar 28, 2018 15:49
[2018-03-28 16:00] VITALS: BP 96/66
--- NOTE | 2018-03-28 16:15 | History and Physical Report ---
DATE OF ADMISSION: 03/27/2018 TIME SEEN: 03/28/2018 at 10 a.m. CONSULTANTS: 1. Doni Finley M.D. 2. Orville Doyle M.D. 3. Orlando Tucker M.D. CHIEF COMPLAINT: Fever, leukopenia, thrombocytopenia, and weakness. BRIEF HISTORY: The patient is a 42-year-old female, traveling from [place] has low-grade fever for 6 days. She had travel to [place] prior to this, came to [place], diagnosed with fever, leukopenia, thrombocytopenia, weakness, and diarrhea and admitted to medical floor for further treatment. Currently, calm in bed, slightly weak. No complaint. REVIEW OF SYSTEMS: No chest pain. No shortness of breath. Slight nausea. No vomiting. Positive diarrhea. PAST MEDICAL HISTORY: Nothing. PAST SURGICAL HISTORY: Trach. ALLERGIES: Denies. SOCIAL HISTORY: No smoke. No alcohol. No intravenous drug abuse. FAMILY HISTORY: Noncontributory. PHYSICAL EXAMINATION: GENERAL: Calm in bed, oriented x3, no acute distress. VITAL SIGNS: Temperature is 98 degrees, pulse 68, respirations 19, and blood pressure 109/66. CARDIOVASCULAR: No murmurs. LUNGS: Distant and clear. ABDOMEN: Bowel sounds positive. Nontender. Nondistended. EXTREMITIES: No cyanosis, clubbing, or edema. NEUROLOGIC: Slightly weak. Moves all extremities. LABORATORY DATA: Show initial white count of 1.5, now 8.9, hemoglobin and hematocrit normal, and platelets are 70, otherwise CBC is normal. BMP is normal. INR is 1.0 and PTT is 30. Urinalysis show 5+ blood, otherwise 2+ protein. MEDICATIONS: Famotidine, Dilaudid, Tylenol, Zofran, Dulcolax, Ativan, Ambien, Benadryl, Mylanta, and nitroglycerin. ASSESSMENT: 1. Fever. 2. Leukopenia, which has resolved. 3. Thrombocytopenia. 4. Weakness. 5. Diarrhea. PLAN: 1. IV fluids. 2. Pain control. 3. Nausea medication. 4. Antibiotics per Infectious Disease. 5. Dietary eval. 6. CBC and BMP in the morning. Nitin England D.O. DR: HYACINTH JOB#: [id number] CC:
--- NOTE | 2018-03-28 16:38 | NUR ---
CASE MANAGEMENT: INITIAL REVIEW 03/27/2018 42 YO F PRESENTED TO OUR ED FROM HOME CC: ABD PAIN PMHx: LYMPHEDEMA. SI:ACUTE FEBRILE ILLNESS. THROMBOCYTOPENIA. T 98.1 HR 92 RR 18 B/P 100/74 SATS 97% ON RA WBC 1.5 BUN 6 AST 44 IS: NS BOLUS X1 PATIENT ADMITTED TO MED/SURG 03/27/2018 @ 1214 DCP: PATIENT TO BE DISCHARGED TO HOME ONCE MEDICALLY CLEARED. 03/28/2018 SI:ACUTE FEBRILE ILLNESS. THROMBOCYTOPENIA. T 99.5 HR 70 RR 19 B/P 98/61 SATS 99% ON RA AST 67 IS: IVF @ 75 mL/HR PEPCID PO QD PATIENT ADMITTED TO MED/SURG 03/27/2018 @ 1214 PLAN OF CARE: US ABD CXR DCP: PATIENT TO BE DISCHARGED TO HOME ONCE MEDICALLY CLEARED. Addendum: 03/28/18 at 1901 by Marsha Sheehan CM INTERQUAL MET FOR ACUTE
--- NOTE | 2018-03-28 19:48 | NUR ---
HAND-OFF: Report given to ANNA Elias.
--- NOTE | 2018-03-28 19:49 | NUR ---
NURSE NOTES: Received report & pt from Rema Urias RN. Pt lying in bed, a&ox4, in room air, family member at bedside. IV site intact with IVF running as ordered. Skin intact. Bed in lowest position, call light within reach. Will continue to monitor.
[2018-03-28 20:00] VITALS: BP 92/57
[2018-03-29 00:08] VITALS: BP 92/57
[2018-03-29 04:00] VITALS: BP 92/57
[2018-03-29] MEDS: 1/2NS w/KCl 20mEq 1000ml 1,000 ML IV SCH ×2 (05:05→18:30)
--- NOTE | 2018-03-29 07:29 | NUR ---
HAND-OFF: Report given to Mandie CASTILLO/Shanda CASTILLO.
[2018-03-29 08:00] VITALS: BP 93/58
--- NOTE | 2018-03-29 08:05 | NUR ---
NURSE NOTES: Report received, rounds made. Patient sitting upright in bed. Alert, oriented x4, calm. Denies pain or NV. IV infusing to RAC as ordered, site asymptomatic. Vitals stable. Up to the bathroom as tolerated. Patient informed that Stool for OB is needed, hat in toilet, patient verbalized understanding. Appetite good. Will continue to assess.
[2018-03-29 08:07] LABS: HEMATOCRIT 36.8 % (37.0-47.0); HEMOGLOBIN 12.8 G/DL (12.0-16.0); MEAN CORPUSCULAR VOLUME 92 FL (80-99); PLATELET COUNT 63 K/UL (150-450); RED CELL DISTRIBUTION WIDTH 11.6 % (11.6-14.8); WHITE BLOOD COUNT 8.9 K/UL (4.8-10.8)
[2018-03-29 08:27] LABS: ANION GAP 7 mmol/L (5-15); BLOOD UREA NITROGEN 10 mg/dL (7-18); CALCIUM 8.7 MG/DL (8.5-10.1); CARBON DIOXIDE 25 MMOL/L (21-32); CHLORIDE 107 MMOL/L (98-107); CREATININE 0.8 MG/DL (0.55-1.30); POTASSIUM 4.5 MMOL/L (3.5-5.1); SODIUM 139 MMOL/L (136-145)
--- NOTE | 2018-03-29 09:45 | NUR ---
INSURANCE ALL CLINICALS AND REVIEWS FAED TO: [employer] NCM:SINDI P:[phone] F:[phone]
[2018-03-29 12:00] VITALS: BP 111/69
--- NOTE | 2018-03-29 12:58 | Infectious Diseases Prog Note ---
Assessment/Plan Assessment/Plan Abx: None Assessment: Viral syndrome- high suspicion for Dengue fever given recent travel to [place], multiple mosquitoes bites, leukopenia/thrombocytopenia, bleeding, fever- watch out for Dengue hemorrhagic fever and/or shock -Neg: acute hep panel, HIV ab sc, influenza sc Vaginal Bleeding -Pelvic/transvaginal US: Small amount of free pelvic fluid with bilateral ovarian follicles, measuring 1.8 cm maximally on the left. Otherwise normal pelvic ultrasound. 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 Will continue to follow along with you. Discussed with RN. Subjective Allergies: Coded Allergies: No Known Allergies (Unverified , 03/27/18) Subjective Tm 100.2;a febrile >12hrs leukopenia resolved but thrombocytopenia is worsening Objective Vital Signs Last 24 Hour Vital Signs Date Time Temp Pulse Resp B/P (MAP) Pulse Ox O2 Delivery O2 Flow Rate FiO2 03/29/18 08:00 98.4 60 17 93/58 (70) 97 03/29/18 04:00 97.9 58 16 92/57 (69) 97 03/28/18 21:00 Room Air 03/28/18 20:00 97.9 65 18 92/57 (69) 97 03/28/18 18:58 99.5 03/28/18 16:17 99.5 03/28/18 16:00 100.2 69 18 96/66 (76) 98 Height (Feet): 5 Height (Inches): 9.00 Weight (Pounds): 135 Objective General Appearance: normal inspection, well appearing, no apparent distress, alert, HEENT: atraumatic, normal ENT inspection Neck: normal inspection, full range of motion, supple, no bony tend Respiratory: normal inspection, lungs clear, normal breath sounds, no respiratory distress, no retraction, no wheezing Cardiovascular : regular rate, rhythm, no edema Gastrointestinal: normal inspection, normal bowel sounds, non tender, soft, no guarding, no hernia Genitourinary: no CVA tenderness Musculoskeletal: normal inspection, back normal, normal range of motion Skin: normal inspection, normal color, no rash, capillary refil <2s Microbiology Date/Time Source Procedure Growth Status 03/27/18 13:00 Blood Blood Culture - Preliminary NO GROWTH AFTER 24 HOURS Resulted 03/27/18 12:55 Blood Blood Culture - Preliminary NO GROWTH AFTER 24 HOURS Resulted 03/27/18 00:00 Nasal Nares Influenza Types A,B Antigen (COLLEEN) - Final Complete 03/28/18 10:20 Stool Stool Culture - Preliminary Resulted 03/27/18 07:50 Urine,Clean Catch Urine Culture - Preliminary NO GROWTH AFTER 24 HOURS Resulted Laboratory Tests Test 03/28/18 16:50 03/29/18 05:41 Parvovirus (B19) IgG Antibody Pending Parvovirus (B19) IgM Antibody Pending White Blood Count 8.9 K/UL (4.8-10.8) Red Blood Count 4.00 M/UL (4.20-5.40) L Hemoglobin 12.8 G/DL (12.0-16.0) Hematocrit 36.8 % (37.0-47.0) L Mean Corpuscular Volume 92 FL (80-99) Mean Corpuscular Hemoglobin 31.9 PG (27.0-31.0) H Mean Corpuscular Hemoglobin Concent 34.7 G/DL (32.0-36.0) Red Cell Distribution Width 11.6 % (11.6-14.8) Platelet Count 63 K/UL (150-450) L Mean Platelet Volume 8.7 FL (6.5-10.1) Neutrophils (%) (Auto) % (45.0-75.0) Lymphocytes (%) (Auto) % (20.0-45.0) Monocytes (%) (Auto) % (1.0-10.0) Eosinophils (%) (Auto) % (0.0-3.0) Basophils (%) (Auto) % (0.0-2.0) Differential Total Cells Counted 100 Neutrophils % (Manual) 80 % (45-75) H Lymphocytes % (Manual) 11 % (20-45) L Monocytes % (Manual) 6 % (1-10) Eosinophils % (Manual) 1 % (0-3) Basophils % (Manual) 0 % (0-2) Band Neutrophils 2 % (0-8) Platelet Estimate Decreased L Platelet Morphology Normal Sodium Level 139 MMOL/L (136-145) Potassium Level 4.5 MMOL/L (3.5-5.1) Chloride Level 107 MMOL/L (98-107) Carbon Dioxide Level 25 MMOL/L (21-32) Anion Gap 7 mmol/L (5-15) Blood Urea Nitrogen 10 mg/dL (7-18) Creatinine 0.8 MG/DL (0.55-1.30) Estimat Glomerular Filtration Rate > 60 mL/min (>60) Glucose Level 86 MG/DL (74-106) Calcium Level 8.7 MG/DL (8.5-10.1) Current Medications Medications (Trade) Dose Ordered Sig/Ronda Route PRN Reason Start Time Stop Time Status Last Admin Dose Admin Acetaminophen (Tylenol) 650 mg Q4H PRN ORAL fever 03/27/18 11:45 04/26/18 11:44 03/28/18 15:47 Al Hydroxide/Mg Hydroxide (Mylanta II) 30 ml Q6H PRN ORAL dyspepsia 03/27/18 11:45 04/26/18 11:44 Bisacodyl (Dulcolax) 10 mg HSPRN PRN RECTAL Constipation 03/27/18 11:45 04/26/18 11:44 Dextrose (Dextrose 50%) 25 ml Q30M PRN IV Hypoglycemia 03/27/18 11:45 04/26/18 11:44 Dextrose (Dextrose 50%) 50 ml Q30M PRN IV Hypoglycemia 03/27/18 11:45 04/26/18 11:44 Diphenhydramine HCl (Benadryl) 25 mg Q6H PRN ORAL Itching/Pruritis 03/27/18 11:45 04/26/18 11:44 03/28/18 15:49 Famotidine (Pepcid) 40 mg DAILY ORAL 03/28/18 09:00 04/27/18 08:59 03/29/18 09:04 Hydromorphone HCl (Dilaudid) 1 mg Q6H PRN IVP For Pain 03/27/18 16:15 04/03/18 16:14 Lorazepam (Ativan) 1 mg Q4H PRN ORAL For Anxiety 03/27/18 11:45 04/03/18 11:44 Nitroglycerin (Ntg) 0.4 mg Q5M X 3 DOSES PRN SL Prn Chest Pain 03/27/18 11:45 04/26/18 11:44 Ondansetron HCl (Zofran) 4 mg Q6H PRN IVP Nausea & Vomiting 03/27/18 11:45 04/26/18 11:44 Sodium 1,000 ml @ 75 mls/hr [id number] IV 03/27/18 13:00 04/26/18 12:59 03/29/18 05:05 Zolpidem Tartrate (Ambien) 5 mg HSPRN PRN ORAL Insomnia 03/27/18 11:45 04/03/18 11:44 Sheila Werner M.D. Mar 29, 2018 12:58
--- NOTE | 2018-03-29 14:20 | General Progress Note ---
Assessment/Plan Problem List: (1) Diarrhea ICD Codes: R19.7 - Diarrhea, unspecified SNOMED: 55386177 (2) Leukopenia ICD Codes: D72.819 - Decreased white blood cell count, unspecified SNOMED: 43009244, 251657116 (3) Thrombocytopenia ICD Codes: D69.6 - Thrombocytopenia, unspecified SNOMED: 978985017, 081874327 (4) Acute febrile illness ICD Codes: R50.9 - Fever, unspecified SNOMED: 155777023 Status: unchanged Assessment/Plan pain control abx id heme f/u cbc bmp am Subjective Constitutional: Reports: weakness Gastrointestinal/Abdominal: Reports: diarrhea Allergies: Coded Allergies: No Known Allergies (Unverified , 03/27/18) All Systems: reviewed and negative except above Objective Last 24 Hour Vital Signs Date Time Temp Pulse Resp B/P (MAP) Pulse Ox O2 Delivery O2 Flow Rate FiO2 03/29/18 12:00 97.7 67 17 111/69 (83) 97 03/29/18 08:00 98.4 60 17 93/58 (70) 97 03/29/18 04:00 97.9 58 16 92/57 (69) 97 03/28/18 21:00 Room Air 03/28/18 20:00 97.9 65 18 92/57 (69) 97 03/28/18 18:58 99.5 03/28/18 16:17 99.5 03/28/18 16:00 100.2 69 18 96/66 (76) 98 Intake and Output 03/28/18 03/29/18 19:00 07:00 Intake Total 1675 ml 1140 ml Balance 1675 ml 1140 ml Intake Oral 1600 ml 240 ml IV Total 75 ml 900 ml # Voids 1 # Bowel Movements 2 Laboratory Tests 03/28/18 16:50: Parvovirus (B19) IgG Antibody [Pending], Parvovirus (B19) IgM Antibody [Pending] 03/29/18 05:41: White Blood Count 8.9, Red Blood Count 4.00L, Hemoglobin 12.8, Hematocrit 36.8L , Mean Corpuscular Volume 92, Mean Corpuscular Hemoglobin 31.9H, Mean Corpuscular Hemoglobin Concent 34.7, Red Cell Distribution Width 11.6, Platelet Count 63L, Mean Platelet Volume 8.7, Neutrophils (%) (Auto) , Lymphocytes (%) ( Auto) , Monocytes (%) (Auto) , Eosinophils (%) (Auto) , Basophils (%) (Auto) , Differential Total Cells Counted 100, Neutrophils % (Manual) 80H, Lymphocytes % (Manual) 11L, Monocytes % (Manual) 6, Eosinophils % (Manual) 1, Basophils % ( Manual) 0, Band Neutrophils 2, Platelet Estimate DecreasedL, Platelet Morphology Normal, Sodium Level 139, Potassium Level 4.5, Chloride Level 107, Carbon Dioxide Level 25, Anion Gap 7, Blood Urea Nitrogen 10, Creatinine 0.8, Estimat Glomerular Filtration Rate > 60, Glucose Level 86, Calcium Level 8.7 Height (Feet): 5 Height (Inches): 9.00 Weight (Pounds): 135 General Appearance: lethargic EENT: normal ENT inspection Neck: normal alignment Cardiovascular: normal peripheral pulses, normal rate, regular rhythm Respiratory/Chest: chest wall non-tender, lungs clear, normal breath sounds Abdomen: normal bowel sounds, non tender, soft Extremities: normal inspection Edema: no edema noted Arm (L), no edema noted Arm (R), no edema noted Leg (L), no edema noted Leg (R), no edema noted Pedal (L), no edema noted Pedal (R), no edema noted Generalized Neurologic: responsive, motor weakness Skin: normal pigmentation, warm/dry Nitin England DO Mar 29, 2018 14:20
[2018-03-29 16:00] VITALS: BP 123/76
--- NOTE | 2018-03-29 16:07 | General Progress Note ---
Assessment/Plan Assessment/Plan Assessment/Plan # Leukopenia/Thrombocytopenia -- 1st time admitted, currently baseline 50-100k, hepatitis and hiv are negative. Potentially due to viral syndrome- high suspicion for Dengue fever given recent travel to [place], multiple mosquitoes bites, leukopenia/thrombocytopenia, bleeding, fever- watch out for Dengue hemorrhagic fever and/or shock --> us of the abdomen has been ruled out --> viral studies thus far are negative, get parvo as well --> peripheral smear has been reviewed and is negative --> neupogen x 1 dose given 03/27/18 --> bone marrow biopsy is option if no other cause found # Vaginal Bleeding --> Pelvic/transvaginal US: Small amount of free pelvic fluid with bilateral ovarian follicles, measuring 1.8 cm maximally on the left. Otherwise normal pelvic ultrasound. 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 Subjective Constitutional: Denies: no symptoms, chills, diaphoresis, fever, malaise, weakness, other HEENT: Denies: no symptoms, eye pain, blurred vision, tearing, double vision, ear pain, ear discharge, nose pain, nose congestion, throat pain, throat swelling, mouth pain, mouth swelling, other Cardiovascular: Denies: no symptoms, chest pain, edema, irregular heart rate, lightheadedness, palpitations, syncope, other Respiratory: Denies: no symptoms, cough, orthopnea, shortness of breath, SOB with excertion, SOB at rest, sputum, stridor, wheezing, other Gastrointestinal/Abdominal: Denies: no symptoms, abdomen distended, abdominal pain, black stools, tarry stools, blood in stool, constipated, diarrhea, difficulty swallowing, nausea, poor appetite, poor fluid intake, rectal bleeding , vomiting, other Genitourinary: Denies: no symptoms, burning, discharge, frequency, flank pain, hematuria, incontinence, pain, urgency, other Neurologic/Psychiatric: Denies: no symptoms, anxiety, depressed, emotional problems, headache, numbness, paresthesia, pre-existing deficit, seizure, tingling, tremors, weakness, other Endocrine: Denies: no symptoms, excessive sweating, flushing, intolerance to cold, intolerance to heat, increased hunger, increased thirst, increased urine, unexplained weight gain, unexplained weight loss, other Hematologic/Lymphatic: Denies: no symptoms, anemia, easy bleeding, easy bruising, other Allergies: Coded Allergies: No Known Allergies (Unverified , 03/27/18) Subjective 03/29: Pt is awake and comfortable, no events , plt 63 Objective Last 24 Hour Vital Signs Date Time Temp Pulse Resp B/P (MAP) Pulse Ox O2 Delivery O2 Flow Rate FiO2 03/29/18 12:00 97.7 67 17 111/69 (83) 97 03/29/18 08:00 98.4 60 17 93/58 (70) 97 03/29/18 04:00 97.9 58 16 92/57 (69) 97 03/28/18 21:00 Room Air 03/28/18 20:00 97.9 65 18 92/57 (69) 97 03/28/18 18:58 99.5 03/28/18 16:17 99.5 Intake and Output 03/28/18 03/29/18 19:00 07:00 Intake Total 1675 ml 1140 ml Balance 1675 ml 1140 ml Intake Oral 1600 ml 240 ml IV Total 75 ml 900 ml # Voids 1 # Bowel Movements 2 Laboratory Tests 03/28/18 16:50: Parvovirus (B19) IgG Antibody [Pending], Parvovirus (B19) IgM Antibody [Pending] 03/29/18 05:41: White Blood Count 8.9, Red Blood Count 4.00L, Hemoglobin 12.8, Hematocrit 36.8L , Mean Corpuscular Volume 92, Mean Corpuscular Hemoglobin 31.9H, Mean Corpuscular Hemoglobin Concent 34.7, Red Cell Distribution Width 11.6, Platelet Count 63L, Mean Platelet Volume 8.7, Neutrophils (%) (Auto) , Lymphocytes (%) ( Auto) , Monocytes (%) (Auto) , Eosinophils (%) (Auto) , Basophils (%) (Auto) , Differential Total Cells Counted 100, Neutrophils % (Manual) 80H, Lymphocytes % (Manual) 11L, Monocytes % (Manual) 6, Eosinophils % (Manual) 1, Basophils % ( Manual) 0, Band Neutrophils 2, Platelet Estimate DecreasedL, Platelet Morphology Normal, Sodium Level 139, Potassium Level 4.5, Chloride Level 107, Carbon Dioxide Level 25, Anion Gap 7, Blood Urea Nitrogen 10, Creatinine 0.8, Estimat Glomerular Filtration Rate > 60, Glucose Level 86, Calcium Level 8.7 Height (Feet): 5 Height (Inches): 9.00 Weight (Pounds): 135 John Doyle MD Mar 29, 2018 16:07
--- NOTE | 2018-03-29 16:45 | Consultation ---
Consult Note Consult Note GYNECOLOGY CONSULT NOTE CC: Vaginal bleeding HPI: Lola is a alonso 42yo who initially presented to the ED with increasing abdominal pain, fever, and vaginal bleeding after returning from [place] for holiday. Her current working diagnosis is Dengue Fever. She states that her fever began 6 days ago and her bleeding started 4 days ago on Thursday. It began as light bleeding with wiping, but became heavier with passage of clots with wiping on Thursday. She denies any continuous vaginal bleeding and has not required a pad, however she will intermittently pass clots with wiping after she voids. The largest clot she passed was approximately the size of large grape. She reports that her abdominal pain was deep and felt like a burning pain under her umbilicus. The pain has since improved and she denies any tenderness today. Her LMP was 03/14 and her menses are regular. Her bleeding is currently minimal. No other complaints. I was consulted to evaluate her vaginal bleeding. Beta-hCG neg. Of note, patient has had tender gums and has noted bleeding in her nasal passages. She denies melena or hematemesis. Of note, patient was in [place] for 1 month. She got multiple mosquito bites and began having fevers 3d after returning, fevers ranging from 100-101F and persistent. She experienced nausea on Thursday but denies emesis. She also endorsed frontal headaches. She recently traveled to [facility] for 1 month (for work) from November to December 2017 and was treated for amebiasis with a 5d course of Metronidazole with resolution of her symptoms. PMH: - Lower extremity lymphedema diagnosed 15y ago (?hereditary) - Factor V Leiden deficiency - Gluten intolerance PSH: - Trachea repair 24y ago - Jaw repair 23y ago (both 2/2 trauma) - Sinus surgery 3y ago for blocked sinuses Meds: Vitamins Allergies: NKDA OBHx: * - G1: TAb - 15y ago - G2: 2013 - TAB (T21) - G3: 2015 - TAB (blighted ovum) - G4: 2017 - TAB (T21) *Patient has undergone 4 cycles of IVF and has 3 embryos banked in the [place]. is highly desired. GYNHx: Hx of cysts since 2013, no abnl Paps. LMP 03/14/18, menses q28-34d, light flow SocHx: Denies T/E/D. From [place], but lives in [place] with her . 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 FamHx: - Mother with arthritis - Father with DM and MT (living) Vitals: Tmax (last 24h) 100.2F, HR 67, BP 111/69, RR 17, O2 97% RA Exam: Gen: NAD, A&O x4 HEENT: MMM, OP clear Neck: No thyromegaly CV: No tachycardia Pulm: No increased work of breathing Abd: Soft, NTND, no rebound or guarding Pelvic: No blood at perineum, internal exam deferred Ext: Swelling in BLE (at baseline per patient), no calf TTP Skin: warm, dry. Localized lesion distal to her her IV site, ?rash - ID aware Labs: Test 03/27/18 07:50 03/27/18 08:10 03/27/18 10:20 03/27/18 18:30 Urine Color Pale yellow Urine Appearance Clear Urine pH 5 (4.5-8.0) Urine Specific [place] 1.010 (1.005-1.035) Urine Protein 2+ (NEGATIVE) Urine Glucose (UA) Negative (NEGATIVE) Urine Ketones Negative (NEGATIVE) Urine Blood 5+ (NEGATIVE) Urine Nitrite Negative (NEGATIVE) Urine Bilirubin Negative (NEGATIVE) Urine Urobilinogen Normal MG/DL (0.0-1.0) Urine Leukocyte Esterase Negative (NEGATIVE) Urine RBC 2-4 /HPF (0 - 2) Urine WBC 0 /HPF (0 - 2) Urine Squamous Epithelial Cells Occasional /LPF Urine Bacteria Moderate /HPF (NONE) Urine HCG, Qualitative Negative (NEGATIVE) White Blood Count 1.5 K/UL (4.8-10.8) Red Blood Count 4.37 M/UL (4.20-5.40) Hemoglobin 13.9 G/DL (12.0-16.0) Hematocrit 40.9 % (37.0-47.0) Mean Corpuscular Volume 94 FL (80-99) Mean Corpuscular Hemoglobin 31.9 PG (27.0-31.0) Mean Corpuscular Hemoglobin Concent 34.1 G/DL (32.0-36.0) Red Cell Distribution Width 11.3 % (11.6-14.8) Platelet Count 87 K/UL (150-450) Mean Platelet Volume 6.5 FL (6.5-10.1) Neutrophils (%) (Auto) % (45.0-75.0) Lymphocytes (%) (Auto) % (20.0-45.0) Monocytes (%) (Auto) % (1.0-10.0) Eosinophils (%) (Auto) % (0.0-3.0) Basophils (%) (Auto) % (0.0-2.0) Differential Total Cells Counted 100 Neutrophils % (Manual) 47 % (45-75) Lymphocytes % (Manual) 39 % (20-45) Monocytes % (Manual) 0 % (1-10) Eosinophils % (Manual) 0 % (0-3) Basophils % (Manual) 1 % (0-2) Band Neutrophils 13 % (0-8) Platelet Estimate Decreased Platelet Morphology Normal Red Blood Cell Morphology Normal Prothrombin Time 10.0 SEC (9.30-11.50) Prothromb Time International Ratio 0.9 (0.9-1.1) Activated Partial Thromboplast Time 31 SEC (23-33) Sodium Level 136 MMOL/L (136-145) Potassium Level 4.3 MMOL/L (3.5-5.1) Chloride Level 100 MMOL/L (98-107) Carbon Dioxide Level 29 MMOL/L (21-32) Anion Gap 7 mmol/L (5-15) Blood Urea Nitrogen 6 mg/dL (7-18) Creatinine 1.0 MG/DL (0.55-1.30) Estimat Glomerular Filtration Rate 59.7 mL/min (>60) Glucose Level 103 MG/DL (74-106) Calcium Level 9.2 MG/DL (8.5-10.1) Total Bilirubin 0.3 MG/DL (0.2-1.0) Aspartate Amino Transf (AST/SGOT) 44 U/L (15-37) Alanine Aminotransferase (ALT/SGPT) 38 U/L (12-78) Alkaline Phosphatase 57 U/L (46-116) Total Protein 7.2 G/DL (6.4-8.2) Albumin 3.8 G/DL (3.4-5.0) Globulin 3.4 g/dL Albumin/Globulin Ratio 1.1 (1.0-2.7) Hepatitis A IgM Antibody Negative (Negative) Hepatitis B Surface Antigen Negative (Negative) Hepatitis B Core IgM Antibody Negative (Negative) Hepatitis C Antibody <0.1 s/co ratio HIV (1&2) Antibody Rapid Negative (NEGATIVE) Test 03/28/18 06:00 03/28/18 10:20 03/28/18 16:50 03/29/18 05:41 White Blood Count 8.9 K/UL (4.8-10.8) 8.9 K/UL (4.8-10.8) Red Blood Count 3.95 M/UL (4.20-5.40) 4.00 M/UL (4.20-5.40) Hemoglobin 12.7 G/DL (12.0-16.0) 12.8 G/DL (12.0-16.0) Hematocrit 36.3 % (37.0-47.0) 36.8 % (37.0-47.0) Mean Corpuscular Volume 92 FL (80-99) 92 FL (80-99) Mean Corpuscular Hemoglobin 32.2 PG (27.0-31.0) 31.9 PG (27.0-31.0) Mean Corpuscular Hemoglobin Concent 35.1 G/DL (32.0-36.0) 34.7 G/DL (32.0-36.0) Red Cell Distribution Width 11.4 % (11.6-14.8) 11.6 % (11.6-14.8) Platelet Count 70 K/UL (150-450) 63 K/UL (150-450) Mean Platelet Volume 9.6 FL (6.5-10.1) 8.7 FL (6.5-10.1) Neutrophils (%) (Auto) % (45.0-75.0) % (45.0-75.0) Lymphocytes (%) (Auto) % (20.0-45.0) % (20.0-45.0) Monocytes (%) (Auto) % (1.0-10.0) % (1.0-10.0) Eosinophils (%) (Auto) % (0.0-3.0) % (0.0-3.0) Basophils (%) (Auto) % (0.0-2.0) % (0.0-2.0) Differential Total Cells Counted 100 100 Neutrophils % (Manual) 68 % (45-75) 80 % (45-75) Lymphocytes % (Manual) 15 % (20-45) 11 % (20-45) Monocytes % (Manual) 8 % (1-10) 6 % (1-10) Eosinophils % (Manual) 0 % (0-3) 1 % (0-3) Basophils % (Manual) 0 % (0-2) 0 % (0-2) Band Neutrophils 9 % (0-8) 2 % (0-8) Platelet Estimate Decreased Decreased Platelet Morphology Normal Normal Prothrombin Time 10.2 SEC (9.30-11.50) Prothromb Time International Ratio 1.0 (0.9-1.1) Activated Partial Thromboplast Time 30 SEC (23-33) Sodium Level 137 MMOL/L (136-145) 139 MMOL/L (136-145) Potassium Level 4.2 MMOL/L (3.5-5.1) 4.5 MMOL/L (3.5-5.1) Chloride Level 104 MMOL/L (98-107) 107 MMOL/L (98-107) Carbon Dioxide Level 26 MMOL/L (21-32) 25 MMOL/L (21-32) Anion Gap 7 mmol/L (5-15) 7 mmol/L (5-15) Blood Urea Nitrogen 9 mg/dL (7-18) 10 mg/dL (7-18) Creatinine 0.9 MG/DL (0.55-1.30) 0.8 MG/DL (0.55-1.30) Estimat Glomerular Filtration Rate > 60 mL/min (>60) > 60 mL/min (>60) Glucose Level 92 MG/DL (74-106) 86 MG/DL (74-106) Calcium Level 8.6 MG/DL (8.5-10.1) 8.7 MG/DL (8.5-10.1) Total Bilirubin 0.3 MG/DL (0.2-1.0) Direct Bilirubin 0.1 MG/DL (0.0-0.3) Aspartate Amino Transf (AST/SGOT) 67 U/L (15-37) Alanine Aminotransferase (ALT/SGPT) 60 U/L (12-78) Alkaline Phosphatase 52 U/L (46-116) Total Protein 5.9 G/DL (6.4-8.2) Albumin 3.4 G/DL (3.4-5.0) Imaging: Pelvic US (03/27) FINDINGS: A negative test is reported. The uterus is normal in size, it measures 8.2 x 5.2 x 4 centimeters. The endometrium is normal in thickness measuring 5.8 mm. The right ovary measures 3.5 x 3.6 x 1.7 cm and the left ovary measure 3.7 x 3.4 x 2 cm. Follicles are seen in bilateral ovaries measuring 1.8 cm maximally on the left. Small amount of free fluid. IMPRESSION: Small amount of free pelvic fluid with bilateral ovarian follicles, measuring 1.8 cm maximally on the left. Otherwise normal pelvic ultrasound. Assessment/Plan ASSESSMENT/PLAN: 42yo with thrombocytopenia and likely Dengue Fever, presenting with small/ moderate amount of intermenstrual bleeding. Her bleeding is likely a sequelae of Dengue, and I recommend expectant management at this time. - Defer interventions for bleeding given no evidence of hemorrhage and H/H stable - No indication for hormone therapy given her small amount of bleeding - Avoid estrogen therapy given her history of FVL deficiency and increased risk of VTE - Her bleeding will likely resolve once her thrombocytopenia resolves and her labs normalize - Pelvic US unremarkable (follicles are normal and are not an indication of pathology) - Continue current management per ID - Patient is cleared for discharge from a [employer] perspective, once she is deemed stable by ID and the admitting physician. Thank you for this interesting consult. Feel free to contact me with questions/ concerns should the need arise. [phone]. Signed: MD Vinh Trammell Carla M.D. Mar 29, 2018 16:45
--- NOTE | 2018-03-29 18:40 | NUR ---
NURSE NOTES: Stool for OB collected and sent to lab. Patient was NPO from 1030 am for US of Abdomen, completed, patient resumed regular diet without difficulty. Patient ambulating in halls. Family member at bedside.
--- NOTE | 2018-03-29 19:15 | NUR ---
HAND-OFF: Report given to Jada CASTILLO, pt in stable condition. - During my shift pt was able to walk with steady gait and took a shower with no issues.
--- NOTE | 2018-03-29 19:30 | NUR ---
NURSE NOTES: Received report & pt from ANNA Land. Pt lying in bed, a&ox4, in room air, family member at bedside. No s/s of acute distress & no c/o pain at this time. IV site intact with IVF running as ordered. Skin intact. Provided toilet hat for O&P sample & pt aware. pt to inform RN if able to pass stool for sample. Bed in lowest position, call light within reach. Will continue to monitor.
[2018-03-29 20:00] VITALS: BP 119/71
[2018-03-30] VITALS: BP 123/67
[2018-03-30 04:00] VITALS: BP 90/50
[2018-03-30 07:14] LABS: HEMATOCRIT 36.4 % (37.0-47.0); HEMOGLOBIN 12.6 G/DL (12.0-16.0); MEAN CORPUSCULAR VOLUME 92 FL (80-99); PLATELET COUNT 91 K/UL (150-450); RED BLOOD COUNT 3.98 M/UL (4.20-5.40); RED CELL DISTRIBUTION WIDTH 11.4 % (11.6-14.8)
[2018-03-30 07:20] LABS: ANION GAP 9 mmol/L (5-15); BLOOD UREA NITROGEN 8 mg/dL (7-18); CALCIUM 8.6 MG/DL (8.5-10.1); CARBON DIOXIDE 25 MMOL/L (21-32); CHLORIDE 107 MMOL/L (98-107); CREATININE 0.8 MG/DL (0.55-1.30); POTASSIUM 4.5 MMOL/L (3.5-5.1); SODIUM 141 MMOL/L (136-145)
--- NOTE | 2018-03-30 07:30 | NUR ---
HAND-OFF: Report given to Juanis CASTILLO.
--- NOTE | 2018-03-30 07:33 | NUR ---
NURSE NOTES: WALKING ROUNDS DONE WITH OUTGOING RN.PATIENT ASLEEP IN BED. CALL LIGHT WITHIN REACH. BED IN LOW AND LOCKED POSITION.
[2018-03-30] MEDS: 1/2NS w/KCl 20mEq 1000ml 1,000 ML IV SCH (07:39)
[2018-03-30 08:00] VITALS: BP 97/58
--- NOTE | 2018-03-30 10:26 | Diagnostic Imaging Report ---
Indication:Abdominal pain Technique: Grayscale and duplex Doppler imaging of the abdomen performed. Comparison: None Findings: The liver is mildly prominent measuring between 17 and 18 cm. The gallbladder is unremarkable. The demonstrated part of the pancreas, aorta and IVC show no abnormalities. Both kidneys appear unremarkable. The spleen is normal in size measuring 11 cm. There is no biliary ductal dilatation identified. Doppler evaluation of the main portal vein shows patency. There is no ascites. No hydronephrosis seen. CBD is 2.4 mm. Impression: Borderline hepatomegaly
[2018-03-30 12:00] VITALS: BP 114/73
--- NOTE | 2018-03-30 12:19 | Infectious Diseases Prog Note ---
Assessment/Plan Assessment/Plan Abx: None Assessment: Viral syndrome- high suspicion for Dengue fever given recent travel to [place], multiple mosquitoes bites, leukopenia/thrombocytopenia, bleeding, fever- watch out for Dengue hemorrhagic fever and/or shock -Neg: acute hep panel, HIV ab sc, influenza sc Vaginal Bleeding -Pelvic/transvaginal US: Small amount of free pelvic fluid with bilateral ovarian follicles, measuring 1.8 cm maximally on the left. Otherwise normal pelvic ultrasound. 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 She will need a doctor's excuse as she was supposed to travel today back to [place]. -Repeat CBC in 1week -f/u Dengue fever ab panel and PCR, HIV VL, stool cx, ova+p x3, Giardia/ cryptosporidum/cyclospora/isospora/microsporidium -f/u cx -Monitor CBC/CMP, temperatures; Trned plts -Heme onc f/u -OBGYN eval, pending -Avoid NSAIDS Thank you for this consultation. Will continue to follow along with you. Discussed with RN. Subjective Allergies: Coded Allergies: No Known Allergies (Unverified , 03/27/18) Subjective afebrile >36hrs pts increased todayt o 90s vaginal bleeding has minimized Objective Vital Signs Last 24 Hour Vital Signs Date Time Temp Pulse Resp B/P (MAP) Pulse Ox O2 Delivery O2 Flow Rate FiO2 03/30/18 09:00 Room Air 03/30/18 08:00 98.3 67 18 97/58 (71) 100 03/30/18 04:00 97.9 67 18 90/50 (63) 98 03/30/18 00:00 98.1 64 18 123/67 (85) 98 03/29/18 20:22 Room Air 03/29/18 20:00 98.2 69 19 119/71 (87) 98 03/29/18 16:00 98.3 73 16 123/76 (92) 99 Height (Feet): 5 Height (Inches): 9.00 Weight (Pounds): 135 Objective General Appearance: normal inspection, well appearing, no apparent distress, alert, HEENT: atraumatic, normal ENT inspection Neck: normal inspection, full range of motion, supple, no bony tend Respiratory: normal inspection, lungs clear, normal breath sounds, no respiratory distress, no retraction, no wheezing Cardiovascular : regular rate, rhythm, no edema Gastrointestinal: normal inspection, normal bowel sounds, non tender, soft, no guarding, no hernia Genitourinary: no CVA tenderness Musculoskeletal: normal inspection, back normal, normal range of motion Skin: normal inspection, normal color, no rash, capillary refil <2s Microbiology Date/Time Source Procedure Growth Status 03/27/18 13:00 Blood Blood Culture - Preliminary NO GROWTH AFTER 48 HOURS Resulted 03/27/18 12:55 Blood Blood Culture - Preliminary NO GROWTH AFTER 48 HOURS Resulted 03/28/18 10:20 Stool Stool Culture - Preliminary NORMAL FECAL TREASURE. Resulted Laboratory Tests Test 03/30/18 05:20 White Blood Count 7.0 K/UL (4.8-10.8) Red Blood Count 3.98 M/UL (4.20-5.40) L Hemoglobin 12.6 G/DL (12.0-16.0) Hematocrit 36.4 % (37.0-47.0) L Mean Corpuscular Volume 92 FL (80-99) Mean Corpuscular Hemoglobin 31.7 PG (27.0-31.0) H Mean Corpuscular Hemoglobin Concent 34.6 G/DL (32.0-36.0) Red Cell Distribution Width 11.4 % (11.6-14.8) L Platelet Count 91 K/UL (150-450) L Mean Platelet Volume 8.0 FL (6.5-10.1) Neutrophils (%) (Auto) % (45.0-75.0) Lymphocytes (%) (Auto) % (20.0-45.0) Monocytes (%) (Auto) % (1.0-10.0) Eosinophils (%) (Auto) % (0.0-3.0) Basophils (%) (Auto) % (0.0-2.0) Differential Total Cells Counted 100 Neutrophils % (Manual) 67 % (45-75) Lymphocytes % (Manual) 19 % (20-45) L Monocytes % (Manual) 8 % (1-10) Eosinophils % (Manual) 2 % (0-3) Basophils % (Manual) 0 % (0-2) Band Neutrophils 4 % (0-8) Platelet Estimate Decreased L Platelet Morphology Normal Red Blood Cell Morphology Normal Sodium Level 141 MMOL/L (136-145) Potassium Level 4.5 MMOL/L (3.5-5.1) Chloride Level 107 MMOL/L (98-107) Carbon Dioxide Level 25 MMOL/L (21-32) Anion Gap 9 mmol/L (5-15) Blood Urea Nitrogen 8 mg/dL (7-18) Creatinine 0.8 MG/DL (0.55-1.30) Estimat Glomerular Filtration Rate > 60 mL/min (>60) Glucose Level 97 MG/DL (74-106) Calcium Level 8.6 MG/DL (8.5-10.1) Current Medications Medications (Trade) Dose Ordered Sig/Ronda Route PRN Reason Start Time Stop Time Status Last Admin Dose Admin Acetaminophen (Tylenol) 650 mg Q4H PRN ORAL fever 03/27/18 11:45 04/26/18 11:44 03/28/18 15:47 Al Hydroxide/Mg Hydroxide (Mylanta II) 30 ml Q6H PRN ORAL dyspepsia 03/27/18 11:45 04/26/18 11:44 Bisacodyl (Dulcolax) 10 mg HSPRN PRN RECTAL Constipation 03/27/18 11:45 04/26/18 11:44 Dextrose (Dextrose 50%) 25 ml Q30M PRN IV Hypoglycemia 03/27/18 11:45 04/26/18 11:44 Dextrose (Dextrose 50%) 50 ml Q30M PRN IV Hypoglycemia 03/27/18 11:45 04/26/18 11:44 Diphenhydramine HCl (Benadryl) 25 mg Q6H PRN ORAL Itching/Pruritis 03/27/18 11:45 04/26/18 11:44 03/28/18 15:49 Famotidine (Pepcid) 40 mg DAILY ORAL 1/13/19 09:00 04/27/18 08:59 03/30/18 08:48 Hydromorphone HCl (Dilaudid) 1 mg Q6H PRN IVP For Pain 03/27/18 16:15 04/03/18 16:14 Lorazepam (Ativan) 1 mg Q4H PRN ORAL For Anxiety 03/27/18 11:45 04/03/18 11:44 Nitroglycerin (Ntg) 0.4 mg Q5M X 3 DOSES PRN SL Prn Chest Pain 03/27/18 11:45 04/26/18 11:44 Ondansetron HCl (Zofran) 4 mg Q6H PRN IVP Nausea & Vomiting 03/27/18 11:45 04/26/18 11:44 Sodium 1,000 ml @ 75 mls/hr [id number] IV 03/27/18 13:00 04/26/18 12:59 03/30/18 07:39 Zolpidem Tartrate (Ambien) 5 mg HSPRN PRN ORAL Insomnia 03/27/18 11:45 04/03/18 11:44 Sheila Werner M.D. Mar 30, 2018 12:19
--- NOTE | 2018-03-30 13:45 | General Progress Note ---
Assessment/Plan Problem List: (1) Diarrhea ICD Codes: R19.7 - Diarrhea, unspecified SNOMED: 40430856 (2) Leukopenia ICD Codes: D72.819 - Decreased white blood cell count, unspecified SNOMED: 09403247, 361628321 (3) Thrombocytopenia ICD Codes: D69.6 - Thrombocytopenia, unspecified SNOMED: 734557141, 395107349 (4) Acute febrile illness ICD Codes: R50.9 - Fever, unspecified SNOMED: 267310783 Status: unchanged Assessment/Plan pain control abx id heme f/u cbc bmp am dc plan Subjective Constitutional: Reports: weakness Allergies: Coded Allergies: No Known Allergies (Unverified , 03/27/18) All Systems: reviewed and negative except above Subjective tired Objective Last 24 Hour Vital Signs Date Time Temp Pulse Resp B/P (MAP) Pulse Ox O2 Delivery O2 Flow Rate FiO2 03/30/18 12:00 98.2 92 17 114/73 (87) 98 03/30/18 09:00 Room Air 03/30/18 08:00 98.3 67 18 97/58 (71) 100 03/30/18 04:00 97.9 67 18 90/50 (63) 98 03/30/18 00:00 98.1 64 18 123/67 (85) 98 03/29/18 20:22 Room Air 03/29/18 20:00 98.2 69 19 119/71 (87) 98 03/29/18 16:00 98.3 73 16 123/76 (92) 99 Intake and Output 03/29/18 03/30/18 19:00 07:00 Intake Total 1390 ml 1500 ml Balance 1390 ml 1500 ml Intake Oral 640 ml 600 ml IV Total 750 ml 900 ml # Voids 5 3 Laboratory Tests 03/30/18 05:20: White Blood Count 7.0, Red Blood Count 3.98L, Hemoglobin 12.6, Hematocrit 36.4L , Mean Corpuscular Volume 92, Mean Corpuscular Hemoglobin 31.7H, Mean Corpuscular Hemoglobin Concent 34.6, Red Cell Distribution Width 11.4L, Platelet Count 91L, Mean Platelet Volume 8.0, Neutrophils (%) (Auto) , Lymphocytes (%) (Auto) , Monocytes (%) (Auto) , Eosinophils (%) (Auto) , Basophils (%) (Auto) , Differential Total Cells Counted 100, Neutrophils % ( Manual) 67, Lymphocytes % (Manual) 19L, Monocytes % (Manual) 8, Eosinophils % ( Manual) 2, Basophils % (Manual) 0, Band Neutrophils 4, Platelet Estimate DecreasedL, Platelet Morphology Normal, Red Blood Cell Morphology Normal, Sodium Level 141, Potassium Level 4.5, Chloride Level 107, Carbon Dioxide Level 25, Anion Gap 9, Blood Urea Nitrogen 8, Creatinine 0.8, Estimat Glomerular Filtration Rate > 60, Glucose Level 97, Calcium Level 8.6 Height (Feet): 5 Height (Inches): 9.00 Weight (Pounds): 135 General Appearance: lethargic EENT: PERRL/EOMI Neck: normal alignment Cardiovascular: normal peripheral pulses, normal rate, regular rhythm Respiratory/Chest: chest wall non-tender, lungs clear, normal breath sounds Abdomen: normal bowel sounds, non tender, soft Extremities: normal inspection Edema: no edema noted Arm (L), no edema noted Arm (R), no edema noted Leg (L), no edema noted Leg (R), no edema noted Pedal (L), no edema noted Pedal (R), no edema noted Generalized Neurologic: responsive, motor weakness Skin: normal pigmentation, warm/dry Nitin England DO Mar 30, 2018 13:45
--- NOTE | 2018-03-30 14:49 | NUR ---
CASE MANAGEMENT: REVIEW SI: A-FIB . THROMBOCYTOPENIA T 98.2 HR 92 RR 17 BP 90/50 SAT 98% ROOM AIR HCT 36.[address] 91 IS: NS IVF @75ML/HR PEPCID PO QD DILAUDID 1MG IV Q6HR PRN MED/SURG STATUS DCP: PATIENT IS FROM HOME
--- NOTE | 2018-03-30 15:00 | NUR ---
INSURANCE UPDATED CLINICALS AND REVIEW FAXED TO [facility] ITALOM:SINDI P:[phone] F:[phone]
--- NOTE | 2018-03-30 15:30 | NUR ---
NURSE NOTES: PATIENT REMAINS STABLE. AFEBRILE. NO PASSAGE OF VAGINAL CLOTS SEEN. SEEN BY PCP AND CONSULTS. DC ORDERS RECEIVED. PATIENT AWARE. REQUEST FLU VACCINE; DOCUMENTED AND ORDERED.
[2018-03-30 16:00] VITALS: BP 136/79
[2018-03-30] MEDS ORDERED: Flu Vaccine (Alfuria) for Pts Less than 65 Years old IM ONE (17:00)
--- NOTE | 2018-03-30 18:24 | NUR ---
NURSE NOTES: ADMINISTERED FLU VACCINE REQUESTED FROM PATIENT. DISCHARGE INSTRUCTIONS REVIEWED AND GIVEN TO PATIENT WITH FLU PATIENT EDUCATION. OUTPT. LAB REQUEST PROVIDED BY DR. THAKKAR AND GIVEN TO PT/ SPOUSE. PATIENT EDUCATION OF DX PROVIDED. QUESTIONS ANSWERED. VERBALIZED UNDERSTANDING. ALL BELONGINGS WITH SPOUSE. TRANSPORTED TO CAR VIA .
--- NOTE | 2018-03-30 20:10 | General Progress Note ---
Assessment/Plan Assessment/Plan Assessment/Plan # Leukopenia/Thrombocytopenia -- 1st time admitted, currently baseline 50-100k, hepatitis and hiv are negative. Potentially due to viral syndrome- high suspicion for Dengue fever given recent travel to [place], multiple mosquitoes bites, leukopenia/thrombocytopenia, bleeding, fever- watch out for Dengue hemorrhagic fever and/or shock --> us of the abdomen has been ruled out --> viral studies thus far are negative, get parvo as well --> peripheral smear has been reviewed and is negative --> neupogen x 1 dose given 03/27/18 --> bone marrow biopsy is option if no other cause found # Vaginal Bleeding --> Pelvic/transvaginal US: Small amount of free pelvic fluid with bilateral ovarian follicles, measuring 1.8 cm maximally on the left. Otherwise normal pelvic ultrasound. 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 Subjective Constitutional: Denies: no symptoms, chills, diaphoresis, fever, malaise, weakness, other HEENT: Denies: no symptoms, eye pain, blurred vision, tearing, double vision, ear pain, ear discharge, nose pain, nose congestion, throat pain, throat swelling, mouth pain, mouth swelling, other Cardiovascular: Denies: no symptoms, chest pain, edema, irregular heart rate, lightheadedness, palpitations, syncope, other Respiratory: Denies: no symptoms, cough, orthopnea, shortness of breath, SOB with excertion, SOB at rest, sputum, stridor, wheezing, other Gastrointestinal/Abdominal: Denies: no symptoms, abdomen distended, abdominal pain, black stools, tarry stools, blood in stool, constipated, diarrhea, difficulty swallowing, nausea, poor appetite, poor fluid intake, rectal bleeding , vomiting, other Genitourinary: Denies: no symptoms, burning, discharge, frequency, flank pain, hematuria, incontinence, pain, urgency, other Neurologic/Psychiatric: Denies: no symptoms, anxiety, depressed, emotional problems, headache, numbness, paresthesia, pre-existing deficit, seizure, tingling, tremors, weakness, other Endocrine: Denies: no symptoms, excessive sweating, flushing, intolerance to cold, intolerance to heat, increased hunger, increased thirst, increased urine, unexplained weight gain, unexplained weight loss, other Hematologic/Lymphatic: Denies: no symptoms, anemia, easy bleeding, easy bruising, other Allergies: Coded Allergies: No Known Allergies (Unverified , 03/27/18) Subjective 03/29: Pt is awake and comfortable, no events , plt 63 03/30: Pt is seen by bedside, awake and comfortable. pelvic UC reviewed, no events Objective Last 24 Hour Vital Signs Date Time Temp Pulse Resp B/P (MAP) Pulse Ox O2 Delivery O2 Flow Rate FiO2 03/30/18 16:00 98.1 62 18 136/79 (98) 98 03/30/18 12:00 98.2 92 17 114/73 (87) 98 03/30/18 09:00 Room Air 03/30/18 08:00 98.3 67 18 97/58 (71) 100 03/30/18 04:00 97.9 67 18 90/50 (63) 98 03/30/18 00:00 98.1 64 18 123/67 (85) 98 03/29/18 20:22 Room Air Intake and Output 03/29/18 03/30/18 19:00 07:00 Intake Total 1390 ml 1500 ml Balance 1390 ml 1500 ml Intake Oral 640 ml 600 ml IV Total 750 ml 900 ml # Voids 5 3 Laboratory Tests 03/30/18 05:20: White Blood Count 7.0, Red Blood Count 3.98L, Hemoglobin 12.6, Hematocrit 36.4L , Mean Corpuscular Volume 92, Mean Corpuscular Hemoglobin 31.7H, Mean Corpuscular Hemoglobin Concent 34.6, Red Cell Distribution Width 11.4L, Platelet Count 91L, Mean Platelet Volume 8.0, Neutrophils (%) (Auto) , Lymphocytes (%) (Auto) , Monocytes (%) (Auto) , Eosinophils (%) (Auto) , Basophils (%) (Auto) , Differential Total Cells Counted 100, Neutrophils % ( Manual) 67, Lymphocytes % (Manual) 19L, Monocytes % (Manual) 8, Eosinophils % ( Manual) 2, Basophils % (Manual) 0, Band Neutrophils 4, Platelet Estimate DecreasedL, Platelet Morphology Normal, Red Blood Cell Morphology Normal, Sodium Level 141, Potassium Level 4.5, Chloride Level 107, Carbon Dioxide Level 25, Anion Gap 9, Blood Urea Nitrogen 8, Creatinine 0.8, Estimat Glomerular Filtration Rate > 60, Glucose Level 97, Calcium Level 8.6 Height (Feet): 5 Height (Inches): 9.00 Weight (Pounds): 135 Objective PE: Vitals: reviewed General Appearance: A+O x3, NAD HEENT: normocephalic, atraumatic Neck: non-tender, normal alignment Respiratory/Chest: chest wall non-tender, lungs clear Cardiovascular/Chest: normal peripheral pulses, normal rate Abdomen: normal bowel sounds, non tender Extremities: normal range of motion John Doyle MD Mar 30, 2018 20:10
--- NOTE | 2018-03-31 12:06 | Discharge Summary ---
Discharge Summary Discharge Summary _ DATE OF ADMISSION: 03/27/2018 DATE OF DISCHARGE: 03/30/2018 DISCHARGED BY: Dr. England REASON FOR ADMISSION: 42 years old female medical history of factor V Leiden deficiency, recent amebiosis status post treatment with Flagyl for 5 days, presented with increased lower abdominal pain and vaginal bleeding for the past 2-days. Patient had normal menses about 2 weeks ago. She denied irregular menses in the past. No prior history of fibroids. No anticoagulation use. Patient reported abdominal discomfort and diarrhea along with generalized body aches. Patient reported multiple episodes of nonbloody diarrhea. No hematemesis. In the past few days patient took Tamiflu and ibuprofen. Patient had travelled to [facility] about 2 months ago and was later treated for amebiosis with 5 days of Flagyl. Patient also recently traveled to [place] and just came back to [facility]. Patient reported multiple insect bites. Patient originally from [place] and currently lives in [place]. 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 Upon evaluation patient was found to be febrile. and severely leukopenic WBC 1.5. Urine test was negative. Urinalysis revealed moderate bacteria and microscopic hematuria. Hemoglobin 13.9 ,platelets 87. Stable coagulation profile. Stable renal parameters and electrolytes. AST mildly elevated at 44 ALT within normal limits . Transvaginal ultrasound revealed small amount of free pelvic fluid with bilateral ovarian follicles measuring 1.8 cm maximally on the left. Otherwise normal pelvic ultrasound. Patient was admitted for further management. CONSULTANTS: pulmonary Dr. Tucker ID specialist Dr. Finley shrimp peeling machine operator/oncologist Dr. Doyle PHYSICIAN NEONATOLOGY Dr. Justice HOSPITAL COURSE: Patient admitted and started on IV hydration. ID consult was requested. According to infectious disease specialist , patient had viral syndrome with high suspicion for Dengue fever, given recent travel to [place], multiply mosquitos bites, leukopenia/thrombocytopenia, bleeding, fever. Patient was closely monitored for possible hemorrhagic fever and shock. Hemodynamic status was closely monitored and remained stable. Supportive treatment provided with IV fluids. Hemoglobin and hematocrit were closely monitored, remained stable. Hepatitis panel was negative. HIV test was nonreactive. Dengue fever antibody panel and PCR, stool culture ,stool for ova and parasite, Giardia and cryptosporidium, Cyclospora ordered and pending. Nonsteroidal anti-inflammatory medication were avoided. Abdominal ultrasound revealed borderline hepatomegaly, otherwise no acute findings. PHYSICIAN NEONATOLOGY specialist seen adn evaluated the patient. Patient with small/moderate amount of intermenstrual bleeding. Bleeding was likely sequela of Dengue fever . PHYSICIAN NEONATOLOGY recommended expectant management at this time. No intervention for bleeding were recommended, given no evidence of hemorrhage and stable hemoglobin and hematocrit. No indication for hormonal therapy, given small amount of bleeding. Avoid estrogen therapy given history of factor V Leiden deficiency and increased risk for DVT. Bleeding was anticipated to be resolved with resolution of thrombocytopenia and normalization of labs. Pasting Inspector seen and evaluated patient for leukopenia and thrombocytopenia . Patient initially received 1 dose of Neupogen. Leukopenia resolved. Per shrimp peeling machine operator , both leukopenia and thrombocytopenia were potentially due to Dengue fever. Pasting Inspector recommended to consider bone marrow biopsy option, if no other causes would be found. Peripheral blood smear was reviewed and was negative. Leukopenia resolved, prior to discharge WBC 7.0. Hemoglobin stable 12.6 hematocrit 36.4. Bleeding stopped. Platelets trended up to 91. Stable electrolytes. Patient was stable for discharge home FINAL DIAGNOSES: Viral syndrome High suspicion for Dengue fever Leukopenia -resolved Thrombocytopenia Recent history of amebiasis, s/p antibiotic treatment Factor V Leyden deficiency Probable celiac disease Intermenstrual bleeding , likely sequela of Dengue fever DISCHARGE MEDICATIONS: None DISCHARGE INSTRUCTIONS: Patient was discharged home Follow up with primary care provider in one week. I have been assigned to dictate discharge summary for this account. I was not involved in the patient's management. Tracy Carrizales NP Mar 31, 2018 12:06
--- NOTE | 2018-04-02 16:31 | NUR ---
INSURANCE DISCHARGE SUMMARY FAXED TO: [facility] ITALOM:SINDI P:[phone] F:[phone]
== END 2018-03-30 18:36 | disposition home or self-care (01) | DRG 866 ==
LOC: EMR 08:02 → EDBD 08:02 → EDBEDREQ 11:52 → 3E 12:14
DX: A90 Dengue fever [classical dengue] (principal); D68.51 Activated protein C resistance; N93.8 Other specified abnormal uterine and vaginal bleeding; D47.3 Essential (hemorrhagic) thrombocythemia; K90.0 Celiac disease; I89.0 Lymphedema, not elsewhere classified
CPT/HCPCS: 36415; 71045; 76700; 76830; 76856; 80048; 80053; 80076; 81003; 81025; 85007; 85025; 85610; 85730; 86703; 86705; 86709; 86710; 86747; 86803; 86999; 87015; 87040; 87045; 87086; 87207; 87329; 87340; 87536; 90686; 96360; 99285